=== PATIENT | male | born 1970 | race Caucasian/White ===

== ENCOUNTER 2018-01-01 11:00 | Observation (INO) | payer MEDICARE, OTHER ==
[~2018-01-01] VITALS: Ht 177.8 cm; Wt 114.0 kg
[2018-01-01] VITALS (8 sets, daily range): BP systolic 120–144; BP diastolic 68–99; PULSE 59–77; RESP 16–20; TEMP 96.4–98; O2SAT 94–98
[~2018-01-01 11:00] MED LIST: LEVO50TA4 PO; ULTR37.57 PO
[2018-01-01] MEDS ORDERED: OMEP20TA93 PO (11:09)
[2018-01-01] MEDS ORDERED: LEVO25TA4 PO (11:09)
[2018-01-01] MEDS ORDERED: SODIUM CHLORIDE 0.9% FLUSH 10 ML FLUSH IVF PRN (11:30)
--- NOTE | 2018-01-01 11:39 | RADRPT ---
EXAM DATE/TIME: 01/01/2018 11:32 [place] COMPARISON: CHEST SINGLE AP, May 26, 2016, 22:49. INDICATIONS : Chest pain. MEDICAL HISTORY : None. SURGICAL HISTORY : None. ENCOUNTER: Initial ACUITY: 3 days PAIN SCORE: 7/10 LOCATION: Bilateral chest FINDINGS: A single view of the chest demonstrates the lungs to be symmetrically aerated without evidence of mas s, infiltrate or effusion. The cardiomediastinal contours are unremarkable. Osseous structures are intact. CONCLUSION: No acute disease. Jayson Dao MD on January 01, 2018 at 11:36 Board Certified Radiologist. This report was verified electronically.
[2018-01-01 11:41] LABS: AUTOMATED NEUTROPHIL # 4.4 TH/MM3 (1.8-7.7); BASOPHIL % 0.5 % (0.0-2.0); EOSINOPHIL # 0.4 TH/MM3 (0-0.4); EOSINOPHIL % 5.9 % (0.0-4.0); HEMATOCRIT 45.8 % (39.0-51.0); HEMOGLOBIN 15.1 GM/DL (13.0-17.0); LYMPH % 26.5 % (9.0-44.0); LYMPHOCYTE # 1.8 TH/MM3 (1.0-4.8); MEAN CELL VOLUME 89.6 FL (80.0-100.0); MEAN CORPUSCULAR HEMOGLOBIN 29.6 PG (27.0-34.0); MEAN PLATELET VOLUME 7.7 FL (7.0-11.0); MONO % 5.9 % (0.0-8.0); MONOCYTE # 0.4 TH/MM3 (0-0.9); NEUT % 61.2 % (16.0-70.0); PLATELET COUNT 272 TH/MM3 (150-450); RED BLOOD COUNT 5.11 MIL/MM3 (4.50-5.90); RED CELL DISTRIBUTION WIDTH 12.4 % (11.6-17.2)
[2018-01-01 11:52] LABS: CHLORIDE 104 MEQ/L (98-107); SODIUM (NA) 138 MEQ/L (136-145)
--- NOTE | 2018-01-01 11:54 | PD ---
HPI Chief Complaint: Chest Pain Time Seen by Provider: 11:29 Travel History International Travel<30 days: No Contact w/Intl Traveler<30days: No Traveled to known affect area: No History of Present Illness HPI 47 year old male with history of heart burn controlled with Omeprazole presents to ED with worsening heart burn associated with non radiating central chest tightness and occasional SOB with onset this morning. The patient reports that he has had similar symptoms like this a year ago in which he came to the ED and was diagnosed with heart burn and placed on Omeprazole at that time, however he has had no relief of symptoms this episode with meds. He is denying N/V/D, fevers and abd pain. He is a non smoker, non drinker and denies any other drug use. Risk Factors: Obese Modifying Factors:[None] Associated sign and symptoms: Chest tightness, SOB, denies N/V/D. PFSH Past Medical History Diminished Hearing: No Thyroid Disease: Yes Past Surgical History Appendectomy: Yes Cholecystectomy: Yes Other Surgery: Yes (OPEN HEAD INJURY) Social History Alcohol Use: No Tobacco Use: No Substance Use: No Allergies-Medications (Allergen,Severity, Reaction): Coded Allergies: penicillin G (Unverified Allergy, Unknown, 01/01/18) Reported Meds & Prescriptions Reported Meds & Active Scripts Active Reported Omeprazole 20 Mg Tab 20 Mg PO DAILY Levothyroxine (Levothyroxine Sodium) 25 Mcg Tab 25 Mcg PO DAILY Review of Systems Except as stated in HPI: all other systems reviewed are Neg Physical Exam Narrative GENERAL: Well appearing obese male, mildly distressed. Awake and oriented 3. SKIN: Warm and dry. HEAD: Atraumatic. Normocephalic. EYES: Pupils equal and round. No scleral icterus. No injection or drainage. ENT: No nasal bleeding or discharge. Mucous membranes pink and moist. NECK: Trachea midline. No JVD. Supple. CARDIOVASCULAR: Regular rate and rhythm, no murmurs, rubs or gallops. Pulses are present and equal bilaterally. RESPIRATORY: No accessory muscle use. Clear to auscultation. Breath sounds equal bilaterally. GASTROINTESTINAL: Abdomen soft, non-tender, nondistended. Hepatic and splenic margins not palpable. MUSCULOSKELETAL: Extremities without clubbing, cyanosis, or edema. No obvious deformities. NEUROLOGICAL: Awake and alert. No obvious cranial nerve deficits. Motor grossly within normal limits. Five out of 5 muscle strength in the arms and legs. Normal speech. PSYCHIATRIC: Appropriate mood and affect; insight and judgment normal. Data Data Last Documented VS Vital Signs Date Time Temp Pulse Resp B/P (MAP) Pulse Ox O2 Delivery O2 Flow Rate FiO2 01/01/18 12:13 138/77 (97) 126/79 (95) 01/01/18 11:34 96 Room Air 01/01/18 11:09 75 01/01/18 11:03 98.0 18 Orders Orders Electrocardiogram (01/01/18 11:29) B-Type Natriuretic Peptide (01/01/18 11:29) Ckmb (Isoenzyme) Profile (01/01/18 11:29) Complete Blood Count With Diff (01/01/18 11:29) Comprehensive Metabolic Panel (01/01/18 11:29) D-Dimer (01/01/18 11:29) Magnesium (Mg) (01/01/18 11:29) Prothrombin Time / Inr (Pt) (01/01/18 11:29) Act Partial Throm Time (Ptt) (01/01/18 11:29) Troponin I (01/01/18 11:29) Chest, Single Ap (01/01/18 11:29) Ecg Monitoring (01/01/18 11:29) Bilateral Bp Monitoring (01/01/18 11:29) Iv Access Insert/Monitor (01/01/18 11:29) Oximetry (01/01/18 11:29) Oxygen Administration (01/01/18 11:29) Sodium Chloride 0.9% Flush (Ns Flush) (01/01/18 11:30) Lipase (01/01/18 11:29) CKMB (01/01/18 11:37) CKMB% (01/01/18 11:37) Aspirin (Aspirin) (01/01/18 12:15) Labs Laboratory Tests Test 01/01/18 11:37 White Blood Count 7.0 TH/MM3 Red Blood Count 5.11 MIL/MM3 Hemoglobin 15.1 GM/DL Hematocrit 45.8 % Mean Corpuscular Volume 89.6 FL Mean Corpuscular Hemoglobin 29.6 PG Mean Corpuscular Hemoglobin Concent 33.0 % Red Cell Distribution Width 12.4 % Platelet Count 272 TH/MM3 Mean Platelet Volume 7.7 FL Neutrophils (%) (Auto) 61.2 % Lymphocytes (%) (Auto) 26.5 % Monocytes (%) (Auto) 5.9 % Eosinophils (%) (Auto) 5.9 % Basophils (%) (Auto) 0.5 % Neutrophils # (Auto) 4.4 TH/MM3 Lymphocytes # (Auto) 1.8 TH/MM3 Monocytes # (Auto) 0.4 TH/MM3 Eosinophils # (Auto) 0.4 TH/MM3 Basophils # (Auto) 0.0 TH/MM3 CBC Comment DIFF FINAL Differential Comment Prothrombin Time 10.2 SEC Prothromb Time International Ratio 1.0 RATIO Activated Partial Thromboplast Time 25.6 SEC D-Dimer Quantitative (PE/DVT) 0.27 MG/L FEU Blood Urea Nitrogen 14 MG/DL Creatinine 0.99 MG/DL Random Glucose 125 MG/DL Total Protein 7.7 GM/DL Albumin 3.9 GM/DL Calcium Level 8.9 MG/DL Magnesium Level 2.2 MG/DL Alkaline Phosphatase 82 U/L Aspartate Amino Transf (AST/SGOT) 21 U/L Alanine Aminotransferase (ALT/SGPT) 36 U/L Total Bilirubin 0.5 MG/DL Sodium Level 138 MEQ/L Potassium Level 3.8 MEQ/L Chloride Level 104 MEQ/L Carbon Dioxide Level 27.7 MEQ/L Anion Gap 6 MEQ/L Estimat Glomerular Filtration Rate 81 ML/MIN Total Creatine Kinase 125 U/L Creatine Kinase MB 1.1 NG/ML Troponin I LESS THAN 0.02 NG/ML B-Type Natriuretic Peptide 5 PG/ML Lipase 193 U/L MDM Medical Decision Making Medical Screen Exam Complete: Yes Emergency Medical Condition: Yes Medical Record Reviewed: Yes Interpretation(s) EKG shows NSR, no ST elevation or depression, and no arrhythmias. No significant T-wave inversions. Laboratory Tests Test 01/01/18 11:37 Eosinophils (%) (Auto) 5.9 % (0.0-4.0) Random Glucose 125 MG/DL (74-106) Estimat Glomerular Filtration Rate 81 ML/MIN (>89) Troponin I LESS THAN 0.02 NG/ML Last 24 hours Impressions Chest X-Ray 01/01/18 1129 Signed Impressions: Service Date/Time: Monday, January 01, 2018 11:32 - CONCLUSION: No acute disease. Jayson Dao MD Differential Diagnosis ACS versus dysrhythmias versus anxiety attack versus PE versus pneumonia Narrative Course EKG did not show significant signs of dysrhythmias or ST changes. Chest x-ray was unremarkable for acute pulmonary processes. D-dimer is negative. At this point, my plan would be to admit the patient for further evaluation of this atypical chest pain. Case is discussed with Dr. Rosales for admission. Given aspirin in the ER. Diagnosis Primary Impression: Chest pain Admitting Information Admitting Physician Requests: it Joaquín Contreras MD Jan 01, 2018 11:53
[2018-01-01 11:55] LABS: CALCIUM 8.9 MG/DL (8.5-10.1)
[2018-01-01 11:56] LABS: ALBUMIN 3.9 GM/DL (3.4-5.0); BICARBONATE 27.7 MEQ/L (21.0-32.0); BLOOD UREA NITROGEN 14 MG/DL (7-18); GLUCOSE,RANDOM 125 MG/DL (74-106); MAGNESIUM 2.2 MG/DL (1.5-2.5)
[2018-01-01 11:58] LABS: ALT (GPT) 36 U/L (12-78); AST (GOT) 21 U/L (15-37)
[2018-01-01 11:59] LABS: CREATININE 0.99 MG/DL (0.60-1.30); GLOMERULAR FILTRATION RATE 81 ML/MIN (>89); PROTHROMBIN TIME - PATIENT 10.2 SEC (9.8-11.6)
[2018-01-01 12:00] LABS: TOTAL BILIRUBIN ADULT 0.5 MG/DL (0.2-1.0); TOTAL PROTEIN 7.7 GM/DL (6.4-8.2)
[2018-01-01 12:01] LABS: ALKALINE PHOSPHATASE 82 U/L (45-117)
[2018-01-01 12:03] LABS: D-DIMER 0.27 MG/L FEU (0.00-0.50)
[2018-01-01 12:04] LABS: TROPONIN I LESS THAN 0.02 NG/ML (0.02-0.05)
[2018-01-01] MEDS ORDERED: ASPIRIN 325 MG TAB PO ONE (12:15)
[2018-01-01] MEDS ORDERED: SODIUM CHLORIDE 0.9% FLUSH 10 ML FLUSH IV FLUSH PRN (13:15)
[2018-01-01] MEDS ORDERED: NALOXONE HCL 0.4 MG/ML AMP IV PUSH PRN (13:15)
[2018-01-01] MEDS ORDERED: ONDANSETRON HCL 4 MG/2 ML VIAL IVP PRN (13:15)
[2018-01-01] MEDS ORDERED: TEMAZEPAM 15 MG CAP PO PRN (13:15)
--- NOTE | 2018-01-01 13:25 | HHI.HP ---
[facility] Mumtaz Cerrato M.D. Admission Diagnosis chest pain Diagnoses: Chief Complaint: Chest pain Travel History International Travel<30 Days: No Contact w/Intl Traveler <30 Da: No Traveled to Known Affected Are: No History of Present Illness This patient is a 47-year-old gentleman with a history of hypothyroidism who comes in complaining of chest tightness 3 days. It is intermittent and severe today. He has received been told he has heartburn and has been taking omeprazole. He has never had any endoscopy and notes that he has increased anxiety lately. He does not smoke and has no family history premature cardiac disease. On exam chest pain is not reproducible however it is located substernally and epigastrically without radiation. It is associated with dizziness and palpitations however there is no diaphoresis or presyncopal episodes. He notes no hematemesis or constipation issues and has not had any gastrointestinal bleeding otherwise. Patient's been recommended for observation due to atypical chest pain. EKG and chest x-ray are unremarkable on my review. First set of cardiac enzymes are negative Review of Systems Constitutional: DENIES: Diaphoretic episodes, Fatigue, Fever, Weight gain, Weight loss, Chills, Dizziness, Change in appetite, Night Sweats Endocrine: DENIES: Heat/cold intolerance, Polydipsia, Polyuria, Polyphagia Eyes: DENIES: Blurred vision, Diplopia, Eye inflammation, Eye pain, Vision loss , Photosensitivity, Double Vision Ears, nose, mouth, throat: DENIES: Tinnitus, Hearing loss, Vertigo, Nasal discharge, Oral lesions, Throat pain, Hoarseness, Ear Pain, Running Nose, Epistaxis, Sinus Pain, Toothache, Odynophagia Respiratory: DENIES: Apneas, Cough, Snoring, Wheezing, Hemoptysis, Sputum production, Shortness of breath Cardiovascular: COMPLAINS OF: Chest pain Gastrointestinal: DENIES: Abdominal pain, Black stools, Bloody stools, Constipation, Diarrhea, Nausea, Vomiting, Difficulty Swallowing, Anorexia Genitourinary: DENIES: Sexual dysfunction, Urinary frequency, Urinary incontinence, Urgency, Hematuria, Dysuria, Nocturia, Penile Discharge, Testicular Pain, Testicular Swelling Musculoskeletal: DENIES: Joint pain, Muscle aches, Stiffness, Joint Swelling, Back pain, Neck pain Integumentary: DENIES: Abnormal pigmentation, Nail changes, Pruritus, Rash Hematologic/lymphatic: DENIES: Bruising, Lymphadenopathy Immunologic/allergic: DENIES: Eczema, Urticaria Neurologic: DENIES: Abnormal gait, Headache, Localized weakness, Paresthesias, Seizures, Speech Problems, Tremor, Poor Balance Psychiatric: DENIES: Anxiety, Confusion, Mood changes, Depression, Hallucinations, Agitation, Suicidal Ideation, Homicidal Ideation, Delusions Except as stated in HPI: all other systems reviewed are Neg Past Family Social History Past Medical History History of brain injury, anxiety, hypothyroidism Past Surgical History Appendectomy Brain surgery status post trauma, cholecystectomy Reported Medications Reviewed in the EMR Allergies: Coded Allergies: penicillin G (Unverified Allergy, Unknown, 01/01/18) Active Ordered Medications Reviewed in the EMR Family History No premature cardiac disease, father has diabetes and history of prostate and lung cancer Mother is alive and well Social History , retired [employer], no tobacco or alcohol dependency issues Physical Exam Vital Signs Vital Signs Date Time Temp Pulse Resp B/P (MAP) Pulse Ox O2 Delivery O2 Flow Rate FiO2 01/01/18 12:15 65 16 126/79 (95) 96 Room Air 01/01/18 12:13 138/77 (97) 126/79 (95) 01/01/18 11:34 96 Room Air 01/01/18 11:34 96 Room Air 01/01/18 11:09 75 95 Room Air 01/01/18 11:03 98.0 77 18 140/87 (104) 94 Physical Exam GENERAL: This is a well-nourished, well-developed patient, in no apparent distress. SKIN: No rashes, ecchymoses or lesions. Cool and dry. HEAD: Atraumatic. Normocephalic. No temporal or scalp tenderness. EYES: Pupils equal round and reactive. Extraocular motions intact. No scleral icterus. No injection or drainage. ENT: Nose without bleeding, purulent drainage or septal hematoma. Throat without erythema, tonsillar hypertrophy or exudate. Uvula midline. Airway patent. NECK: Trachea midline. No JVD or lymphadenopathy. Supple, nontender, no meningeal signs. CARDIOVASCULAR: Regular rate and rhythm without murmurs, gallops, or rubs. RESPIRATORY: Clear to auscultation. Breath sounds equal bilaterally. No wheezes , rales, or rhonchi. GASTROINTESTINAL: Abdomen soft, non-tender, nondistended. No hepato-splenomegaly , or palpable masses. No guarding. MUSCULOSKELETAL: Extremities without clubbing, cyanosis, or edema. No joint tenderness, effusion, or edema noted. No calf tenderness. Negative Homans sign bilaterally. NEUROLOGICAL: Awake and alert. Cranial nerves II through XII intact. Motor and sensory grossly within normal limits. Five out of 5 muscle strength in all muscle groups. Normal speech. Laboratory Laboratory Tests Test 01/01/18 11:37 White Blood Count 7.0 Red Blood Count 5.11 Hemoglobin 15.1 Hematocrit 45.8 Mean Corpuscular Volume 89.6 Mean Corpuscular Hemoglobin 29.6 Mean Corpuscular Hemoglobin Concent 33.0 Red Cell Distribution Width 12.4 Platelet Count 272 Mean Platelet Volume 7.7 Neutrophils (%) (Auto) 61.2 Lymphocytes (%) (Auto) 26.5 Monocytes (%) (Auto) 5.9 Eosinophils (%) (Auto) 5.9 Basophils (%) (Auto) 0.5 Neutrophils # (Auto) 4.4 Lymphocytes # (Auto) 1.8 Monocytes # (Auto) 0.4 Eosinophils # (Auto) 0.4 Basophils # (Auto) 0.0 CBC Comment DIFF FINAL Differential Comment Prothrombin Time 10.2 Prothromb Time International Ratio 1.0 Activated Partial Thromboplast Time 25.6 D-Dimer Quantitative (PE/DVT) 0.27 Blood Urea Nitrogen 14 Creatinine 0.99 Random Glucose 125 Total Protein 7.7 Albumin 3.9 Calcium Level 8.9 Magnesium Level 2.2 Alkaline Phosphatase 82 Aspartate Amino Transf (AST/SGOT) 21 Alanine Aminotransferase (ALT/SGPT) 36 Total Bilirubin 0.5 Sodium Level 138 Potassium Level 3.8 Chloride Level 104 Carbon Dioxide Level 27.7 Anion Gap 6 Estimat Glomerular Filtration Rate 81 Total Creatine Kinase 125 Creatine Kinase MB 1.1 Troponin I LESS THAN 0.02 B-Type Natriuretic Peptide 5 Lipase 193 Result Diagram: 01/01/18 1137 01/01/18 1137 Imaging Last Impressions Chest X-Ray 01/01/18 1129 Signed Impressions: Service Date/Time: Wednesday, January 01, 2018 11:32 - CONCLUSION: No acute disease. MD Subhash Candelario VTE Risk Assessment Caprini VTE Risk Assessment: No/Low Risk (score <= 1) Caprini Risk Assessment Model Point Value = 1 Point Value = 2 Point Value = 3 Point Value = 5 Age 41-60 Minor surgery BMI > 25 kg/m2 Swollen legs Varicose veins or History of unexplained or recurrent spontaneous Oral contraceptives or hormone replacement Sepsis (< 1 month) Serious lung disease, including pneumonia (< 1 month) Abnormal pulmonary function Acute myocardial infarction Congestive heart failure (< 1 month) History of inflammatory bowel disease Medical patient at bed rest Age 61-74 Arthroscopic surgery Major open surgery (> 45 min) Laparoscopic surgery (> 45 min) Malignancy Confined to bed (> 72 hours) Immobilizing plaster cast Central venous access Age >= 75 History of VTE Family history of VTE Factor V Leiden Prothrombin [id number] Lupus anticoagulant Anticardiolipin antibodies Elevated serum homocysteine Heparin-induced thrombocytopenia Other congenital or acquired thrombophilia Stroke (< 1 month) Elective arthroplasty Hip, pelvis, or leg fracture Acute spinal cord injury (< 1 month) Prophylaxis Regimen Total Risk Factor Score Risk Level Prophylaxis Regimen 0-1 Low Early ambulation 2 Moderate Order ONE of the following: *Sequential Compression Device (SCD) *Heparin 5000 units SQ BID 3-4 Higher Order ONE of the following medications: *Heparin 5000 units SQ TID *Enoxaparin/Lovenox 40 mg SQ daily (WT < 150 kg, CrCl > 30 mL/min) *Enoxaparin/Lovenox 30 mg SQ daily (WT < 150 kg, CrCl > 10-29 mL/min) *Enoxaparin/Lovenox 30 mg SQ BID (WT < 150 kg, CrCl > 30 mL/min) AND/OR *Sequential Compression Device (SCD) 5 or more Highest Order ONE of the following medications: *Heparin 5000 units SQ TID (Preferred with Epidurals) *Enoxaparin/Lovenox 40 mg SQ daily (WT < 150 kg, CrCl > 30 mL/min) *Enoxaparin/Lovenox 30 mg SQ daily (WT < 150 kg, CrCl > 10-29 mL/min) *Enoxaparin/Lovenox 30 mg SQ BID (WT < 150 kg, CrCl > 30 mL/min) AND *Sequential Compression Device (SCD) Assessment and Plan Problem List: (1) Chest pain ICD Code: R07.9 - Chest pain, unspecified Status: Acute Plan: Atypical pain likely GI related. Patient has minimal risk factors for coronary disease however the pictures unclear. We will obtain a nuclear stress test and evaluate further for gastrointestinal related chest pain. We'll continue with proton pump inhibitor twice daily Continue on telemetry, cardiac enzymes and EKG to be followed EKG is negative on my review for acute ischemic changes and chest x-ray on my review is not consistent with acute cardiopulmonary disease (2) Hypothyroidism ICD Code: E03.9 - Hypothyroidism, unspecified Status: Acute Plan: Continue Synthroid Discussed Condition With Patient, SILVIA Rinaldi, spouse Susana Rosales MD Jan 01, 2018 13:25
--- NOTE | 2018-01-01 14:01 | EKG ---
Date Performed: 01/01/2018 Time Performed: 11:02:41 PTAGE: 47 years EKG: Sinus rhythm MINIMAL VOLTAGE CRITERIA FOR LVH, CONSIDER NORMAL VARIANT BORDERLINE ECG No significant change from prior electrocardiogram. PREVIOUS TRACING : 05/26/2016 22.38 DOCTOR: Hilario Sterling Interpretating Date/Time 01/01/2018 13:59:39
[2018-01-01] MEDS: PANTOPRAZOLE SOD 40 MG DELAYED RELEASE TAB PO SCH ×2 (14:03→20:51)
[2018-01-01] MEDS: SODIUM CHLOR 0.9% 1000 ML INJ 1,000 ML IV SCH ×2 (14:03→22:32)
[2018-01-01 14:09] LABS: TROPONIN I LESS THAN 0.02 NG/ML (0.02-0.05)
--- NOTE | 2018-01-01 17:10 | PD.CONS ---
HPI History of Present Illness This is a 47 year old M with medical history significant for hypothyroidism who presented to the emergency department today with complaints of chest tightness that has been intermittent for the past three days. He states this morning he had an episode so bad that he was not able to catch his breath. Also this morning had a headache, dizziness, and palpitations. Cardiac work up so far negative, including cardiac enzymes, EKG, and chest x-ray. Pt reports known history of acid reflux that he receives Omeprazole prescription for and he has been on it a long time. Denies taking any other medication OTC for relief. Has never had an EGD. Denies ETOH, smoking, NSAIDs. Denies black, tarry stools , abdominal pain, nausea, vomiting. (Deann Martinez) PFSH Past Medical History History of brain injury, anxiety, hypothyroidism Past Surgical History Appendectomy Brain surgery status post trauma, cholecystectomy (Deann Martinez) Coded Allergies: penicillin G (Unverified Allergy, Unknown, 01/01/18) Family History No premature cardiac disease, father has diabetes and history of prostate and lung cancer Mother is alive and well Social History , retired [employer], no tobacco or alcohol dependency issues (Deann Martinez) Review of Systems Gastrointestinal: COMPLAINS OF: Heartburn, DENIES: Abdominal pain, Black stools , Bloody stools, Constipation, Diarrhea, Nausea, Vomiting, Difficulty Swallowing , Odynophagia, Swelling of Abdomen, Hematemesis (Deann Martinez) GI Exam Vitals I&O Vital Signs Date Time Temp Pulse Resp B/P (MAP) Pulse Ox O2 Delivery O2 Flow Rate FiO2 01/01/18 14:29 01/01/18 14:04 66 18 132/68 (89) 97 Room Air 01/01/18 13:05 64 16 139/79 (99) 96 Room Air 01/01/18 12:15 65 16 126/79 (95) 96 Room Air 01/01/18 12:13 138/77 (97) 126/79 (95) 01/01/18 11:34 96 Room Air 01/01/18 11:34 96 Room Air 01/01/18 11:09 75 95 Room Air 01/01/18 11:03 98.0 77 18 140/87 (104) 94 I/O 12/31/17 12/31/17 12/31/17 01/01/18 01/01/18 01/01/18 07:00 15:00 23:00 07:00 15:00 23:00 Intake Total 100 ml Balance 100 ml Intake IV Total 100 ml Imaging Last Impressions Chest X-Ray 01/01/18 1129 Signed Impressions: Service Date/Time: Monday, January 01, 2018 11:32 - CONCLUSION: No acute disease. Jayson Dao MD Laboratory Test 01/01/18 11:37 01/01/18 13:35 White Blood Count 7.0 TH/MM3 Red Blood Count 5.11 MIL/MM3 Hemoglobin 15.1 GM/DL Hematocrit 45.8 % Mean Corpuscular Volume 89.6 FL Mean Corpuscular Hemoglobin 29.6 PG Mean Corpuscular Hemoglobin Concent 33.0 % Red Cell Distribution Width 12.4 % Platelet Count 272 TH/MM3 Mean Platelet Volume 7.7 FL Neutrophils (%) (Auto) 61.2 % Lymphocytes (%) (Auto) 26.5 % Monocytes (%) (Auto) 5.9 % Eosinophils (%) (Auto) 5.9 % Basophils (%) (Auto) 0.5 % Neutrophils # (Auto) 4.4 TH/MM3 Lymphocytes # (Auto) 1.8 TH/MM3 Monocytes # (Auto) 0.4 TH/MM3 Eosinophils # (Auto) 0.4 TH/MM3 Basophils # (Auto) 0.0 TH/MM3 CBC Comment DIFF FINAL Differential Comment Prothrombin Time 10.2 SEC Prothromb Time International Ratio 1.0 RATIO Activated Partial Thromboplast Time 25.6 SEC D-Dimer Quantitative (PE/DVT) 0.27 MG/L FEU Blood Urea Nitrogen 14 MG/DL Creatinine 0.99 MG/DL Random Glucose 125 MG/DL Total Protein 7.7 GM/DL Albumin 3.9 GM/DL Calcium Level 8.9 MG/DL Magnesium Level 2.2 MG/DL Alkaline Phosphatase 82 U/L Aspartate Amino Transf (AST/SGOT) 21 U/L Alanine Aminotransferase (ALT/SGPT) 36 U/L Total Bilirubin 0.5 MG/DL Sodium Level 138 MEQ/L Potassium Level 3.8 MEQ/L Chloride Level 104 MEQ/L Carbon Dioxide Level 27.7 MEQ/L Anion Gap 6 MEQ/L Estimat Glomerular Filtration Rate 81 ML/MIN Total Creatine Kinase 125 U/L 114 U/L Creatine Kinase MB 1.1 NG/ML Troponin I LESS THAN 0.02 NG/ML LESS THAN 0.02 NG/ML B-Type Natriuretic Peptide 5 PG/ML Lipase 193 U/L Physical Examination HEENT: Normocephalic; atraumatic CHEST: Even/unlabored CARDIAC: RRR ABDOMEN: Soft, nondistended, nontender; bowel sounds active EXTREMITIES: No clubbing, cyanosis, or edema. SKIN: Normal; no rash; no jaundice. COLD ROLL INSPECTOR: No focal deficits; alert and oriented times three. (Deann Martinez) Assessment and Plan Plan Assessment: - Chest tightness x 3 days, intermittent. Episode this morning so severe he felt like he couldn't take a deep breath. Cardiology workup so far negative including EKG, cardiac enzymes, and chest x-ray. Denies cardiac history. Reports known history of acid reflux, takes Omeprazole as prescribed, has been on it a long time. Has not been taking any other OTC medication for relief. Denies nausea, vomiting, abdominal pain, black, tarry stools. Denies taking NSAIDs, smoking, ETOH. Has never had EGD. H/H stable 15.1/45.8 no evidence of GIB. Plan: EGD tomorrow Obtain consent NPO after MN Continue Protonix Further recommendations to follow based on results of above Pt has been seen and examined by myself and Dr. Padilla and this note is written on his behalf (Deann Martinez) Physician Comments Patient seen and examined Agree with above Continue with current supportive care Monitor labs Plan for an EGD in the morning (Douglas Padilla MD) Deann Martinez Jan 01, 2018 17:10 Douglas Padilla MD Jan 01, 2018 20:37
--- NOTE | 2018-01-01 17:23 | EKG ---
Date Performed: 01/01/2018 Time Performed: 13:35:12 PTAGE: 47 years EKG: Sinus rhythm NORMAL ECG Compared to prior electrocardiogram, No significant change from prior electrocardiogram. PREVIOUS TRACING : 01/01/2018 11.02 DOCTOR: Hialrio Sterling Interpretating Date/Time 01/01/2018 17:22:32
[2018-01-01 18:46] LABS: TROPONIN I LESS THAN 0.02 NG/ML (0.02-0.05)
[2018-01-01] MEDS: SODIUM CHLORIDE 0.9% FLUSH 10 ML FLUSH IV FLUSH SCH (20:50)
[2018-01-02] VITALS: BP 114/66; PULSE 80; RESP 20; O2SAT 95
[2018-01-02 04:00] VITALS: BP 102/57; PULSE 63; RESP 18; O2SAT 94
--- NOTE | 2018-01-02 05:20 | EKG ---
Date Performed: 01/01/2018 Time Performed: 21:22:19 PTAGE: 47 years EKG: Sinus rhythm NORMAL ECG No significant change from prior electrocardiogram. PREVIOUS TRACING : 01/01/2018 13.35 DOCTOR: Hilario Sterling Interpretating Date/Time 01/02/2018 05:19:35
[2018-01-02] MEDS ORDERED: LEVOTHYROXINE SODIUM 25 MCG TAB PO SCH (06:00)
[2018-01-02 06:24] LABS: AUTOMATED NEUTROPHIL # 5.2 TH/MM3 (1.8-7.7); BASOPHIL % 0.6 % (0.0-2.0); EOSINOPHIL # 0.5 TH/MM3 (0-0.4); EOSINOPHIL % 5.8 % (0.0-4.0); HEMATOCRIT 42.2 % (39.0-51.0); HEMOGLOBIN 13.9 GM/DL (13.0-17.0); LYMPH % 23.5 % (9.0-44.0); LYMPHOCYTE # 1.9 TH/MM3 (1.0-4.8); MEAN CELL VOLUME 90.1 FL (80.0-100.0); MEAN CORPUSCULAR HEMOGLOBIN 29.7 PG (27.0-34.0); MEAN PLATELET VOLUME 7.8 FL (7.0-11.0); MONOCYTE # 0.5 TH/MM3 (0-0.9); NEUT % 64.1 % (16.0-70.0); PLATELET COUNT 223 TH/MM3 (150-450); RED BLOOD COUNT 4.69 MIL/MM3 (4.50-5.90); RED CELL DISTRIBUTION WIDTH 12.8 % (11.6-17.2); WHITE BLOOD COUNT 8.1 TH/MM3 (4.0-11.0)
[2018-01-02] MEDS: ACETAMINOPHEN 325 MG TAB PO PRN ×2 (06:32→14:16)
[2018-01-02 06:45] LABS: CALCIUM 8.2 MG/DL (8.5-10.1)
[2018-01-02 06:46] LABS: BICARBONATE 28.3 MEQ/L (21.0-32.0)
[2018-01-02 06:49] LABS: CREATININE 0.93 MG/DL (0.60-1.30)
[2018-01-02 06:50] VITALS: BP 102/57; PULSE 63; RESP 15; TEMP 98; O2SAT 98
[2018-01-02] MEDS ORDERED: LACTATED RINGER'S 1000 ML IV PRN (07:00)
[2018-01-02] MEDS ORDERED: METOPROLOL TARTRATE 25 MG TAB PO PRN (07:00)
[2018-01-02] MEDS ORDERED: SODIUM CHLORID 0.9% 500 ML IV PRN (07:00)
[2018-01-02] MEDS ORDERED: CHLORHEXIDINE GLUCONATE 2 % 1 PACK (2 CLOTHS) TOPICAL PRN (07:00)
[2018-01-02] MEDS ORDERED: POVIDONE IODINE 5% (ANTISEPSIS KIT) 4 APPLICATIONS EACH NARE PRN (07:00)
--- NOTE | 2018-01-02 07:20 | PD.PROCEDR ---
GI Procedure PROCEDURE PERFORMED EGD with biopsy INDICATION FOR PROCEDURE Chest pain rule out GI etiology PROCEDURE: The procedure, risks and benefits were discussed with Mr. Hernandez and informed consent was obtained. Anesthesia sedated him with Diprivan. He was placed in the left lateral decubitus position. EGD: The Pentax videoscope was introduced through the oropharynx and advanced to the second portion of the duodenum under direct visualization. Retroflexion was performed in the stomach. FINDINGS: The esophagus this was unremarkable and within normal limits this all esophageal biopsies were taken The stomach there was some streaky and patchy erythema in the antrum but no ulcerations no erosions no blood or bleeding the rest of the stomach was unremarkable antral biopsies were taken for further evaluation The duodenum this was normal ESTIMATED BLOOD LOSS: None SPECIMENS REMOVED: Esophageal and gastric biopsies COMPLICATIONS: None IMPRESSION: Mild gastritis PLAN: Await biopsies Continue PPI Continue with current supportive care Advanced diet No clear etiology for chest pain from a GI perspective Douglas Padilla MD Jan 02, 2018 07:20
[2018-01-02 08:00] VITALS: BP 110/73; PULSE 67; RESP 20; TEMP 97.8; O2SAT 96
[2018-01-02] MEDS: SODIUM CHLOR 0.9% 1000 ML INJ 1,000 ML IV SCH (08:24)
[2018-01-02] MEDS: PANTOPRAZOLE SOD 40 MG DELAYED RELEASE TAB PO SCH (08:24)
[2018-01-02] MEDS: SODIUM CHLORIDE 0.9% FLUSH 10 ML FLUSH IV FLUSH SCH (08:24)
[2018-01-02] MEDS ORDERED: PANT40TA3 PO (11:28)
--- NOTE | 2018-01-02 11:29 | HHI.DCPOC ---
Discharge Care Plan Diagnosis: (1) Gastritis (2) Chest pain Goals to Promote Your Health * To prevent worsening of your condition and complications * To maintain your health at the optimal level Directions to Meet Your Goals Take your medications as prescribed Follow your dietary instruction Follow activity as directed Keep your appointments as scheduled Take your immunizations and boosters as scheduled If your symptoms worsen call your PCP, if no PCP go to Urgent Care Center or Emergency Room Smoking is Dangerous to Your Health. Avoid second hand smoke Call the 24-hour hour crisis hotline for domestic abuse at Susana Rosales MD Jan 02, 2018 11:29
[2018-01-02 12:00] VITALS: BP_SYST 133; PULSE 88; RESP 18; TEMP 98.7; O2SAT 97
[2018-01-02] MEDS ORDERED: PROPOFOL 200 MG/20 ML AMP IV ONE (12:00)
[2018-01-02] MEDS ORDERED: LIDOCAINE HCL 1% PF 5 ML SYRINGE OTHER ONE (12:00)
[2018-01-02] MEDS ORDERED: REGADENOSON INJ 0.4 MG/5 ML SYR IV ONE (13:29)
--- NOTE | 2018-01-02 14:49 | RADRPT ---
EXAM DATE/TIME: 01/02/2018 13:14 [facility] COMPARISON: No previous studies available for comparison. INDICATIONS : Chest pain for 3 days. Angina. DOSE: 35 mCi Tc99m Myoview at stress. 11 mCi Tc99m Myoview at rest. 0.4 mg Lexiscan STRESS SYMPTOMS: Headache. EJECTION FRACTION: 55% MEDICAL HISTORY : Hypothyroidism. SURGICAL HISTORY : Cholecystectomy. Head surgery. ENCOUNTER: Initial ACUITY: 3 days PAIN SCALE: 3/10 LOCATION: Bilateral chest TECHNIQUE: The patient underwent pharmacologic stress with infusion of prescribed dose. Continuous ECG tracing was monitored during stress. Gated SPECT imaging was performed after stress and conventional SPECT i maging was performed at rest. The examination was performed on a SPECT/CT scanner, both attenuation and non-corrected datasets were reviewed. FINDINGS: DISTRIBUTION: The maximum perfused segment at stress is in the lateral wall. PERFUSION STUDY: The pattern of perfusion at stress is within normal limits. There is a summed stress score of one. GATED STUDY: There is intact wall motion and thickening without hypokinetic or dyskinetic segments. CONCLUSION: 1. Normal wall motion and calculated ejection fraction of 55%. 2. No fixed or reversible wall defects to suggest ischemia or infarction. RISK CATEGORY: Low (<1% Annual Mortality Rate) Jayson Dao MD on January 02, 2018 at 14:45 Board Certified Radiologist. This report was verified electronically.
--- NOTE | 2018-01-02 14:59 | HHI.DS ---
Discharge Summary Admission Date Jan 01, 2018 at 12:47 Discharge Date: Jan 02, 2018 Admitting Diagnosis chest pain (1) Chest pain ICD Code: R07.9 - Chest pain, unspecified Status: Acute (2) Hypothyroidism ICD Code: E03.9 - Hypothyroidism, unspecified Status: Acute Procedures EGD, gastritis Brief History - From Admission This patient is a 47-year-old gentleman with a history of hypothyroidism who comes in complaining of chest tightness 3 days. It is intermittent and severe today. He has received been told he has heartburn and has been taking omeprazole. He has never had any endoscopy and notes that he has increased anxiety lately. He does not smoke and has no family history premature cardiac disease. On exam chest pain is not reproducible however it is located substernally and epigastrically without radiation. It is associated with dizziness and palpitations however there is no diaphoresis or presyncopal episodes. He notes no hematemesis or constipation issues and has not had any gastrointestinal bleeding otherwise. Patient's been recommended for observation due to atypical chest pain. EKG and chest x-ray are unremarkable on my review. First set of cardiac enzymes are negative CBC/BMP: 01/02/18 0540 01/02/18 0540 Significant Findings Laboratory Tests Test 01/01/18 11:37 01/01/18 13:35 01/01/18 17:50 01/02/18 05:40 Eosinophils (%) (Auto) 5.9 % (0.0-4.0) 5.8 % (0.0-4.0) Random Glucose 125 MG/DL (74-106) Estimat Glomerular Filtration Rate 81 ML/MIN (>89) 87 ML/MIN (>89) Troponin I LESS THAN 0.02 NG/ML LESS THAN 0.02 NG/ML LESS THAN 0.02 NG/ML Eosinophils # (Auto) 0.5 TH/MM3 (0-0.4) Calcium Level 8.2 MG/DL (8.5-10.1) Anion Gap 4 MEQ/L (5-15) Imaging Last Impressions Myocardial Perfusion Scan Nuc Med 01/02/18 0000 Signed Impressions: Service Date/Time: January 13:14 - CONCLUSION: 1. Normal wall motion and calculated ejection fraction of 55%%. 2. No fixed or reversible wall defects to suggest ischemia or infarction. RISK CATEGORY: Low (<1%% Annual Mortality Rate) Jayson Dao MD Chest X-Ray 01/01/18 1129 Signed Impressions: Service Date/Time: Monday, January 01, 2018 11:32 - CONCLUSION: No acute disease. Jayson Dao MD PE at Discharge GENERAL: This is a well-nourished, well-developed patient, in no apparent distress. CARDIOVASCULAR: Regular rate and rhythm without murmurs, gallops, or rubs. RESPIRATORY: Clear to auscultation. Breath sounds equal bilaterally. No wheezes , rales, or rhonchi. GASTROINTESTINAL: Abdomen soft, non-tender, nondistended. Normal active bowel sounds MUSCULOSKELETAL: Extremities without clubbing, cyanosis, or edema. NEURO: Alert & Oriented x4 to person, place, time, situation. Moves all ext x4 Pt update on day of discharge Patient doing well. Discharge plans discussed with patient, likely scan unremarkable and EKG did show some gastritis Hospital Course this patient is a 47-year-old gentleman with came in with atypical chest pain likely gastrointestinal related He did have a Teagan scan which was normal and an upper endoscopy which did show some gastritis. Patient was recommended for proton pump inhibitor and outpatient follow-up Pt Condition on Discharge: Good Discharge Disposition: Discharge Home Discharge Time: <= 30 minutes Discharge Instructions DIET: Follow Instructions for: As Tolerated, No Restrictions Activities you can perform: Regular-No Restrictions Follow up Referrals: PCP Follow-up - 1 Week New Medications: Pantoprazole (Pantoprazole) 40 Mg Tab 40 MG PO Q12HR for gastritis, #42 TAB take twice daily for two weeks and then once daily Continued Medications: Levothyroxine (Levothyroxine) 25 Mcg Tab 25 MCG PO DAILY for Thyroid, #30 TAB 0 Refills Discontinued Medications: Omeprazole (Omeprazole) 20 Mg Tab 20 MG PO DAILY, #30 TAB 0 Refills Susana Rosales MD Jan 02, 2018 14:59
[2018-01-02 15:16] VITALS: RESP 18
--- NOTE | 2018-01-03 11:28 | TR ---
Date Performed: 01/02/2018 Time Performed: 13:44:24 DOCTOR: Noah Hylton DRUG LIST: CLINICAL HISTORY: REASON FOR TEST: REASON FOR ENDING: OBSERVATION: CONCLUSION: Lexiscan stress test was performed under standard four minute protocol. Radionuclid e was injected one minute prior to ending the test. No electrocardiographic abormalities were present to suggest ischemia. Nuclear imaging and interpretation are pending. COMMENTS:
== END 2018-01-02 15:50 | disposition home or self-care (01) ==
LOC: PHED 11:00 → PHEDA 12:47 → PH3A 14:28
PROVIDERS: ADMIT Hospitalist; ATTEND Hospitalist
DX: K29.50 Unspecified chronic gastritis without bleeding (principal); R07.89 Other chest pain; R12 Heartburn; R06.02 Shortness of breath; E03.9 Hypothyroidism, unspecified; R42 Dizziness and giddiness; R00.2 Palpitations; R51 Headache; E83.51 Hypocalcemia; Z79.899 Other long term (current) drug therapy
CPT/HCPCS: 00731; 43239; 71045; 78452; 80048; 80053; 82550; 82552; 83690; 83735; 83880; 84484; 85025; 85379; 85610; 85730; 88305; 88312; 93005; 93017; 96360; 96361; 99285; A9502; G0378; J2785; J7030

== ENCOUNTER 2018-04-17 02:48 | Emergency (ER) | payer OTHER, MEDICARE ==
[~2018-04-17] VITALS: Ht 177.8 cm; Wt 110.5 kg
[~2018-04-17 02:48] MED LIST changes: +LEVO25TA4 PO; -LEVO50TA4 PO; +PANT40TA3 PO; -ULTR37.57 PO
[2018-04-17 03:00] VITALS: BP_SYST 141; BP_SYST 147; BP_DIAS 85; BP_DIAS 88; BP_DIAS 91; PULSE 68; RESP 18; O2SAT 95; O2SAT 98
[2018-04-17 03:06] VITALS: O2SAT 95
[2018-04-17] MEDS ORDERED: ONDANSETRON HCL 4 MG/2 ML VIAL IV PUSH ONE (03:15)
[2018-04-17] MEDS ORDERED: PANTOPRAZOLE SODIUM 40 MG VIAL IV PUSH ONE (03:15)
[2018-04-17] MEDS ORDERED: SODIUM CHLORIDE 0.9% FLUSH 10 ML FLUSH IVF PRN (03:15)
[2018-04-17] MEDS ORDERED: ASPIRIN 81 MG CHEW TAB PO ONE (03:15)
[2018-04-17] MEDS ORDERED: SODIUM CHLOR 0.9% 1000 ML INJ 1,000 ML IV SCH (03:15)
--- NOTE | 2018-04-17 03:21 | PD ---
HPI Chief Complaint: Chest Pain Time Seen by Provider: 03:01 Travel History International Travel<30 days: No Contact w/Intl Traveler<30days: No Traveled to known affect area: No History of Present Illness HPI 47-year-old male presents to the emergency department by private transportation for complaint of severe stabbing chest pain since 9 PM Saturday evening. Patient states after eating red sauce he started noticing pain in his chest. Patient did take his prescription antacids without relief. Patient did have mild diaphoresis and shortness of breath but no nausea or vomiting. No referred neck jaw shoulder arm pain. Patient did report some mild referred high back pain. Patient also notes some epigastric and right upper quadrant discomfort. Patient is undergone upper endoscopy and colonoscopy in the past and as recently as December 2017 underwent stress test which did not show any acute abnormality and was low risk for CAD. Patient denies personal history of hypertension dyslipidemia diabetes tobaccoism or premature onset family history of CAD/DE. The patient rates his discomfort 7/10 in intensity. PFSH Past Medical History Narrative Medical GERD hypothyroidism appendectomy colonoscopy upper endoscopy stress test; no tobacco use; nursing notes reviewed Diminished Hearing: No Thyroid Disease: Yes Tetanus Vaccination: Unknown Influenza Vaccination: Yes ?: Not Past Surgical History Appendectomy: Yes Cholecystectomy: Yes Other Surgery: Yes (OPEN HEAD INJURY) Social History Alcohol Use: No Tobacco Use: No Substance Use: No Allergies-Medications (Allergen,Severity, Reaction): Coded Allergies: penicillin G (Verified Allergy, Unknown, 04/17/18) Reported Meds & Prescriptions Reported Meds & Active Scripts Active Zofran Odt (Ondansetron Odt) 4 Mg Tab 4 Mg SL Q6HR PRN Carafate Liq (Sucralfate) 1 Gm/10 Ml Susp 1 Gm PO Q6HR 14 Days on empty stomach Pantoprazole (Pantoprazole Sodium) 40 Mg Tab 40 Mg PO Q12HR take twice daily for two weeks and then once daily Reported Levothyroxine (Levothyroxine Sodium) 25 Mcg Tab 25 Mcg PO DAILY Review of Systems Except as stated in HPI: all other systems reviewed are Neg General / Constitutional: No: Fever, Chills HENT: No: Congestion Cardiovascular: Positive: Chest Pain or Discomfort, No: Syncope Respiratory: No: Shortness of Breath Gastrointestinal: Positive: Nausea, Abdominal Pain Genitourinary: No: Flank Pain Musculoskeletal: No: Pain Skin: No Rash Neurologic: No: Weakness Psychiatric: No: Anxiety Hematologic/Lymphatic: No: Lymph Node Enlargement Physical Exam Narrative GENERAL: Well-developed well-nourished male no acute distress or respiratory distress SKIN: Warm and dry. HEAD: Normocephalic. EYES: No scleral icterus. No injection or drainage. NECK: Supple, trachea midline. No JVD or lymphadenopathy. CARDIOVASCULAR: Regular rate and rhythm without murmurs, gallops, or rubs. RESPIRATORY: Breath sounds equal bilaterally. No accessory muscle use. GASTROINTESTINAL: Abdomen soft, mild reproducible epigastric and right upper quadrant tenderness without guarding or rebound, nondistended. MUSCULOSKELETAL: No cyanosis, or edema. BACK: Nontender without obvious deformity. No CVA tenderness. Data Data Last Documented VS Vital Signs Date Time Temp Pulse Resp B/P (MAP) Pulse Ox O2 Delivery O2 Flow Rate FiO2 04/17/18 04:25 58 18 126/75 (92) 96 Room Air Orders Orders Electrocardiogram (04/17/18 03:01) Ckmb (Isoenzyme) Profile (04/17/18 03:01) Complete Blood Count With Diff (04/17/18 03:01) Comprehensive Metabolic Panel (04/17/18 03:01) Magnesium (Mg) (04/17/18 03:01) Prothrombin Time / Inr (Pt) (04/17/18 03:01) Act Partial Throm Time (Ptt) (04/17/18 03:01) Troponin I (04/17/18 03:01) Lipase (04/17/18 03:01) Ecg Monitoring (04/17/18 03:01) Bilateral Bp Monitoring (04/17/18 03:01) Iv Access Insert/Monitor (04/17/18 03:01) Oximetry (04/17/18 03:01) Oxygen Administration (04/17/18 03:01) Aspirin Chew (Aspirin Chew) (04/17/18 03:15) Sodium Chloride 0.9% Flush (Ns Flush) (04/17/18 03:15) Chest, Pa & Lat (04/17/18 03:01) Ondansetron Inj (Zofran Inj) (04/17/18 03:15) Pantoprazole Inj (Protonix Inj) (04/17/18 03:15) Sodium Chlor 0.9% 1000 Ml Inj (Ns 1000 M (04/17/18 03:15) CKMB (04/17/18 03:27) CKMB% (04/17/18 03:27) Sucralfate (Carafate) (04/17/18 04:15) D-Dimer (04/17/18 03:27) Ct Thorax/ Chest Wo Iv Contras (04/17/18 ) Labs Laboratory Tests Test 04/17/18 03:27 White Blood Count 10.9 TH/MM3 Red Blood Count 4.78 MIL/MM3 Hemoglobin 14.5 GM/DL Hematocrit 42.6 % Mean Corpuscular Volume 89.0 FL Mean Corpuscular Hemoglobin 30.4 PG Mean Corpuscular Hemoglobin Concent 34.1 % Red Cell Distribution Width 12.4 % Platelet Count 315 TH/MM3 Mean Platelet Volume 9.1 FL Neutrophils (%) (Auto) 73.1 % Lymphocytes (%) (Auto) 16.8 % Monocytes (%) (Auto) 7.0 % Eosinophils (%) (Auto) 2.3 % Basophils (%) (Auto) 0.8 % Neutrophils # (Auto) 7.9 TH/MM3 Lymphocytes # (Auto) 1.8 TH/MM3 Monocytes # (Auto) 0.8 TH/MM3 Eosinophils # (Auto) 0.3 TH/MM3 Basophils # (Auto) 0.1 TH/MM3 CBC Comment DIFF FINAL Differential Comment Prothrombin Time 9.9 SEC Prothromb Time International Ratio 1.0 RATIO Activated Partial Thromboplast Time 20.4 SEC D-Dimer Quantitative (PE/DVT) 0.35 MG/L FEU Blood Urea Nitrogen 11 MG/DL Creatinine 0.99 MG/DL Random Glucose 118 MG/DL Total Protein 7.3 GM/DL Albumin 3.6 GM/DL Calcium Level 8.6 MG/DL Magnesium Level 2.0 MG/DL Alkaline Phosphatase 96 U/L Aspartate Amino Transf (AST/SGOT) 17 U/L Alanine Aminotransferase (ALT/SGPT) 24 U/L Total Bilirubin 0.2 MG/DL Sodium Level 139 MEQ/L Potassium Level 4.2 MEQ/L Chloride Level 108 MEQ/L Carbon Dioxide Level 24.5 MEQ/L Anion Gap 7 MEQ/L Estimat Glomerular Filtration Rate 81 ML/MIN Total Creatine Kinase 114 U/L Creatine Kinase MB 0.7 NG/ML Troponin I LESS THAN 0.02 NG/ML Lipase 166 U/L MDM Medical Decision Making Medical Screen Exam Complete: Yes Emergency Medical Condition: Yes Medical Record Reviewed: Yes (low risk stress test 01/01/18) Interpretation(s) EKG: Sinus bradycardia rate [address] elevation or injury pattern change noted, borderline LVH minimal voltage criteria; no change from 01/01/18 except rate Last Impressions Chest X-Ray 04/17/18 0301 Signed Impressions: Service Date/Time: April 03:38 - CONCLUSION: 1. Questionable rounded area of density involving the lung bases on the lateral view without correlate on the frontal view. Differential diagnostic considerations include overlapping density, lower lobe rounded atelectasis, and mass. Consider CT thorax as followup. 2. Otherwise, no acute cardio pulmonary disease. Everett Garcia Jr., MD CBC & BMP Diagram 04/17/18 03:27 Total Protein 7.3, Albumin 3.6, Calcium Level 8.6, Magnesium Level 2.0, Alkaline Phosphatase 96, Aspartate Amino Transf (AST/SGOT) 17, Alanine Aminotransferase (ALT/SGPT) 24, Total Bilirubin 0.2 Vital Signs Date Time Temp Pulse Resp B/P (MAP) Pulse Ox O2 Delivery O2 Flow Rate FiO2 04/17/18 03:06 95 Room Air 04/17/18 03:06 95 Room Air 04/17/18 03:01 18 98 Room Air 04/17/18 03:00 68 18 141/85 (103) 98 Room Air 04/17/18 03:00 68 18 141/88 (105) 95 Room Air 147/91 (109) CT chest: Per reading radiologist imaging study is normal no mass CONCLUSION: Normal examination. In particular, no mass observed. Everett Garcia Jr., MD on April 17, 2018 at 5:22 Board Certified Radiologist. This report was verified electronically. Differential Diagnosis Chest pain, ACS, DE, choledocholithiasis, pancreatitis, gastritis, esophageal spasm, GERD, PE Narrative Course Patient placed on cardiac sonographer continuous pulse oximetry with IV access EKG performed shows sinus bradycardia with no acute ST elevation or injury pattern change Patient administered Protonix 40 mg IV aspirin 162 mg by mouth Zofran 4 mg IV maintenance IV fluids 100 cc/h; specimens collections of resulting At 4:10 AM patient reports symptoms markedly improved 3/10 intensity decreased from 7/10 intensity after Zofran and Protonix; troponin I is less than 0.02 not elevated and stress test from 01/01/18 reveals low risk for ischemic event at 1 year patient has no history of hypertension dyslipidemia diabetes tobaccoism or premature onset heart disease in his family. Will administer a one-time dose of 1 gm Carafate slurry. Patient still has mild epigastric tenderness no clinical Rincon sign. Patient denies any shortness of breath pleuritic pain pleuritic chest pain hemoptysis or lower extremity pain or swelling and no recent long distance travel protracted bedrest or surgical procedure no personal history of clotting disorder no family history of clotting disorder. Pain free after carafate; cxr nodule noted on lateral view --rad rec ct At 5:30 AM patient informed of imaging results no evidence for mask CT thorax is normal patient stable for outpatient management and follow-up with her managing provider Diagnosis Primary Impression: Chest pain, atypical Additional Impression: H/O gastroesophageal reflux (GERD) Referrals: [facility] [place] 2 days Patient Instructions: General Instructions Departure Forms: Tests/Procedures, Work Release Special Instructions: no work x 1 day Additional Instructions: Follow clear liquid diet for next 1224 hrs. advance as tolerated to bland/brat diet avoiding fried and fatty foods advance to regular diet Continue current medications as presently prescribed Add Carafate per package directions 2 weeks Take Zofran as prescribed as needed for nausea and/or vomiting Follow-up with your primary care provider within the [facility] Return to the emergency department for any concerns or change in condition Avoid ibuprofen/Advil/Motrin and Aleve/Naprosyn/naproxen Med/Other Pt SpecificInfo: Prescription(s) given Scripts Ondansetron Odt (Zofran Odt) 4 Mg Tab 4 MG SL Q6HR Y for Nausea/Vomiting, #10 TAB 0 Refills Prov: Sara Rosen MD 04/17/18 Sucralfate Liq (Carafate Liq) 1 Gm/10 Ml Susp 1 GM PO Q6HR for Duodenal ulcer for 14 Days, ML 0 Refills on empty stomach Prov: Sara Rosen MD 04/17/18 Disposition: 01 DISCHARGE HOME Condition: Stable Sara Rosen MD April 17, 2018 03:21
[2018-04-17 03:53] LABS: CHLORIDE 108 MEQ/L (98-107); SODIUM (NA) 139 MEQ/L (136-145)
[2018-04-17 03:54] LABS: AUTOMATED NEUTROPHIL # 7.9 TH/MM3 (1.8-7.7); BASOPHIL # 0.1 TH/MM3 (0-0.2); BASOPHIL % 0.8 % (0.0-2.0); EOSINOPHIL # 0.3 TH/MM3 (0-0.4); EOSINOPHIL % 2.3 % (0.0-4.0); HEMATOCRIT 42.6 % (39.0-51.0); HEMOGLOBIN 14.5 GM/DL (13.0-17.0); LYMPH % 16.8 % (9.0-44.0); LYMPHOCYTE # 1.8 TH/MM3 (1.0-4.8); MEAN CORPUSCULAR HEMOGLOBIN 30.4 PG (27.0-34.0); MEAN CORPUSCULAR HGB CONC 34.1 % (32.0-36.0); MEAN PLATELET VOLUME 9.1 FL (7.0-11.0); MONOCYTE # 0.8 TH/MM3 (0-0.9); NEUT % 73.1 % (16.0-70.0); PLATELET COUNT 315 TH/MM3 (150-450); RED BLOOD COUNT 4.78 MIL/MM3 (4.50-5.90); RED CELL DISTRIBUTION WIDTH 12.4 % (11.6-17.2); WHITE BLOOD COUNT 10.9 TH/MM3 (4.0-11.0)
[2018-04-17 03:56] LABS: CALCIUM 8.6 MG/DL (8.5-10.1)
[2018-04-17 03:57] LABS: ALBUMIN 3.6 GM/DL (3.4-5.0); BICARBONATE 24.5 MEQ/L (21.0-32.0); BLOOD UREA NITROGEN 11 MG/DL (7-18); GLUCOSE,RANDOM 118 MG/DL (74-106); PROTHROMBIN TIME - PATIENT 9.9 SEC (9.8-11.6)
[2018-04-17 04:00] LABS: ALT (GPT) 24 U/L (12-78); AST (GOT) 17 U/L (15-37); CREATININE 0.99 MG/DL (0.60-1.30); GLOMERULAR FILTRATION RATE 81 ML/MIN (>89)
--- NOTE | 2018-04-17 04:00 | RADRPT ---
EXAM DATE/TIME: 04/17/2018 03:38 [facility] COMPARISON: No previous studies available for comparison. INDICATIONS : Midline chest pain for 6 hours MEDICAL HISTORY : Hypothyroidism. SURGICAL HISTORY : Cholecystectomy. Head surgery. ENCOUNTER: Initial ACUITY: 1 day PAIN SCORE: 8/10 LOCATION: Bilateral chest FINDINGS: PA and lateral views of the chest demonstrate the lungs to be symmetrically aerated without evidence of infiltrate or effusion. An approximate 3.5 cm rounded area of density projecting over the lung ba ses on the lateral projection without a definitive correlate on the frontal view. The cardiomediastin al contours are unremarkable. Osseous structures are intact. CONCLUSION: 1. Questionable rounded area of density involving the lung bases on the lateral view without correlat e on the frontal view. Differential diagnostic considerations include overlapping density, lower lobe rounded atelectasis, and mass. Consider CT thorax as followup. 2. Otherwise, no acute cardio pulmonary disease. Everett Garcia Jr., MD on April 17, 2018 at 3:56 Board Certified Radiologist. This report was verified electronically.
[2018-04-17 04:01] LABS: TOTAL BILIRUBIN ADULT 0.2 MG/DL (0.2-1.0); TOTAL PROTEIN 7.3 GM/DL (6.4-8.2)
[2018-04-17 04:03] LABS: ALKALINE PHOSPHATASE 96 U/L (45-117)
[2018-04-17 04:05] LABS: TROPONIN I LESS THAN 0.02 NG/ML (0.02-0.05)
[2018-04-17] MEDS ORDERED: SUCRALFATE 1 GM TAB PO ONE (04:15)
[2018-04-17 04:25] VITALS: BP 126/75; PULSE 58; RESP 18; O2SAT 96
[2018-04-17 04:36] LABS: D-DIMER 0.35 MG/L FEU (0.00-0.50)
--- NOTE | 2018-04-17 05:26 | RADRPT ---
EXAM DATE/TIME: 04/17/2018 04:51 [facility] COMPARISON: CHEST PA & LAT, April 17, 2018, 3:38. INDICATIONS : Chest pain with abnormal chest radiograph. RADIATION DOSE: 24.44 CTDIvol (mGy) MEDICAL HISTORY : None SURGICAL HISTORY : None. ENCOUNTER: Initial ACUITY: 1 day PAIN SCALE: 5/10 LOCATION: chest TECHNIQUE: Volumetric scanning of the chest was performed. Using automated exposure control and adjustment of t he mA and/or kV according to patient size, radiation dose was kept as low as reasonably achievable to obtain optimal diagnostic quality images. DICOM format image data is available electronically for r eview and comparison. Follow-up recommendations for detected pulmonary nodules are based at a minimum on nodule size and pa tient risk factors according to Fleischner Society Guidelines. FINDINGS: LUNGS: There is no consolidation or pneumothorax. No concerning pulmonary nodule is visualized. PLEURAE: There is no pleural thickening or pleural effusion. MEDIASTINUM: The heart and great vessels demonstrate no acute abnormality. There is no mediastinal or hilar lymph adenopathy. AXILLAE: Within normal limits. No lymphadenopathy. MUSCULOSKELETAL: Within normal limits for patient age. MISCELLANEOUS: The visualized upper abdominal organs demonstrate no acute abnormality. CONCLUSION: Normal examination. In particular, no mass observed. Everett Garcia Jr., MD on April 17, 2018 at 5:22 Board Certified Radiologist. This report was verified electronically.
[2018-04-17] MEDS ORDERED: ZOFR4TAB3 SL (05:29)
[2018-04-17] MEDS ORDERED: CARA1SUS3 PO (05:29)
[2018-04-17 05:42] VITALS: BP 119/73
--- NOTE | 2018-04-18 11:54 | EKG ---
Date Performed: 04/17/2018 Time Performed: 02:56:30 PTAGE: 47 years EKG: SINUS BRADYCARDIA MINIMAL VOLTAGE CRITERIA FOR LVH, CONSIDER NORMAL VARIANT BORDERLINE ECG PREVIOUS TRACING : 01/01/2018 21.22 DOCTOR: Dominique Hilario Interpretating Date/Time 04/18/2018 11:49:20
== END 2018-04-17 05:45 | disposition home or self-care (01) ==
LOC: PHED 02:48
DX: R07.89 Other chest pain (principal); K21.9 Gastro-esophageal reflux disease without esophagitis; R00.1 Bradycardia, unspecified; E03.9 Hypothyroidism, unspecified; Z88.0 Allergy status to penicillin; Z79.899 Other long term (current) drug therapy
CPT/HCPCS: 71046; 71250; 80053; 82550; 82552; 83690; 83735; 84484; 85025; 85379; 85610; 85730; 93005; 96361; 96374; 96375; 99285; C9113; J2405; J7030

== ENCOUNTER 2018-05-02 21:39 | Observation (INO) | payer OTHER, MEDICARE ==
[~2018-05-02] VITALS: Ht 175.3 cm; Wt 112.0 kg
[~2018-05-02 21:39] MED LIST changes: +CARA1SUS3 PO; +ZOFR4TAB3 SL
[2018-05-02] MEDS ORDERED: IOHEXOL 350 MG/ML 10 ML VIAL (for RAD DIAG) IVCONTRAST ONE (21:40)
[2018-05-02 21:45] VITALS: O2SAT 100
[2018-05-02] MEDS ORDERED: NITROGLYCERIN 0.4 MG SL 25 TABS/BTL SL ONE (22:00)
[2018-05-02] MEDS ORDERED: ASPIRIN 325 MG TAB PO ONE (22:00)
[2018-05-02] MEDS ORDERED: SODIUM CHLORIDE 0.9% FLUSH 10 ML FLUSH IVF PRN (22:00)
[2018-05-02 22:08] VITALS: BP 150/86; PULSE 58
[2018-05-02] MEDS ORDERED: METOCLOPRAMIDE HCL 10 MG/2 ML VIAL IV PUSH ONE (22:15)
[2018-05-02 22:16] LABS: AUTOMATED NEUTROPHIL # 6.4 TH/MM3 (1.8-7.7); BASOPHIL # 0.1 TH/MM3 (0-0.2); BASOPHIL % 1.4 % (0.0-2.0); EOSINOPHIL # 0.2 TH/MM3 (0-0.4); EOSINOPHIL % 2.2 % (0.0-4.0); HEMATOCRIT 44.9 % (39.0-51.0); HEMOGLOBIN 15.7 GM/DL (13.0-17.0); LYMPH % 27.2 % (9.0-44.0); LYMPHOCYTE # 2.8 TH/MM3 (1.0-4.8); MEAN CELL VOLUME 87.9 FL (80.0-100.0); MEAN CORPUSCULAR HEMOGLOBIN 30.7 PG (27.0-34.0); MEAN CORPUSCULAR HGB CONC 34.9 % (32.0-36.0); MEAN PLATELET VOLUME 8.8 FL (7.0-11.0); MONO % 5.7 % (0.0-8.0); MONOCYTE # 0.6 TH/MM3 (0-0.9); NEUT % 63.5 % (16.0-70.0); PLATELET COUNT 308 TH/MM3 (150-450); RED BLOOD COUNT 5.11 MIL/MM3 (4.50-5.90); RED CELL DISTRIBUTION WIDTH 12.6 % (11.6-17.2); WHITE BLOOD COUNT 10.1 TH/MM3 (4.0-11.0)
--- NOTE | 2018-05-02 22:25 | RADRPT ---
EXAM DATE: 05/02/2018 10:21 PM EDT AGE/SEX: 47 years / Male INDICATIONS: Chest pain. CLINICAL DATA: This is the patient's initial encounter. Patient reports that signs and symptoms have been present for 1 day and indicates a pain score of 10/10. MEDICAL/SURGICAL HISTORY: . Hypothyroidism . Cholecystectomy. Head surgery COMPARISON: [facility], CHEST SINGLE AP, 01/01/2018. . FINDINGS: Portable AP view of the chest demonstrates a normal size cardiac silhouette. EKG lines overlie the pa tient. There is mild atelectasis at the lung bases. No effusion, consolidation, or pneumothorax is id entified. Bones and soft tissues demonstrate no acute finding. CONCLUSION: No acute cardiopulmonary abnormality is identified. Electronically signed by: Quintin Farias MD 05/02/2018 10:24 PM EDT
[2018-05-02 22:26] LABS: PROTHROMBIN TIME - PATIENT 10.1 SEC (9.8-11.6)
[2018-05-02] MEDS ORDERED: PANTOPRAZOLE SODIUM 40 MG VIAL IV PUSH ONE (22:30)
[2018-05-02] MEDS ORDERED: SODIUM CHLOR 0.9% 250 ML INJ 250 ML IV ONE (22:30)
--- NOTE | 2018-05-02 22:32 | PD ---
HPI Chief Complaint: Chest Pain Time Seen by Provider: 21:46 Travel History International Travel<30 days: No Contact w/Intl Traveler<30days: No Traveled to known affect area: No History of Present Illness HPI Patient presents to the emergency department complaining of chest pain right sternal area, 20 out of 10, constant, radiating to the back, no alleviating or aggravating factors. Although patient denies that this is similar to the pain he has had in the past, his states that he has had these issues before and is secondary to ulcer disease. He was recently seen in the ER here for the same symptoms. Denies fever, reports chills and some shortness of breath, denies recent travel or lower extremity edema. PFSH Past Medical History Diminished Hearing: No Thyroid Disease: Yes Past Surgical History Appendectomy: Yes Cholecystectomy: Yes Other Surgery: Yes (OPEN HEAD INJURY) Social History Alcohol Use: No Tobacco Use: No Substance Use: No Allergies-Medications (Allergen,Severity, Reaction): Coded Allergies: penicillin G (Verified Allergy, Unknown, 04/17/18) Reported Meds & Prescriptions Reported Meds & Active Scripts Active Zofran Odt (Ondansetron Odt) 4 Mg Tab 4 Mg SL Q6HR PRN Carafate Liq (Sucralfate) 1 Gm/10 Ml Susp 1 Gm PO Q6HR 14 Days on empty stomach Pantoprazole (Pantoprazole Sodium) 40 Mg Tab 40 Mg PO Q12HR take twice daily for two weeks and then once daily Reported Levothyroxine (Levothyroxine Sodium) 25 Mcg Tab 25 Mcg PO DAILY Review of Systems Except as stated in HPI: all other systems reviewed are Neg Physical Exam Narrative GENERAL: + discomfort SKIN: Diaphoretic HEAD: Atraumatic. Normocephalic. EYES: Pupils equal and round. No scleral icterus. No injection or drainage. ENT: No nasal bleeding or discharge. Mucous membranes pink and moist. NECK: Trachea midline. No JVD. No focal C-spine tenderness CARDIOVASCULAR: Regular rate and rhythm. No murmur appreciated. Right chest wall tender to palpation. RESPIRATORY: No accessory muscle use. Clear to auscultation. Breath sounds equal bilaterally. GASTROINTESTINAL: Abdomen soft, non-tender, nondistended. Hepatic and splenic margins not palpable. MUSCULOSKELETAL: No obvious deformities. No clubbing. No cyanosis. No edema. No focal T or L-spine tenderness, but bilateral tenderness when palpate muscle along upper T spine. NEUROLOGICAL: Awake and alert. No obvious cranial nerve deficits. Motor grossly within normal limits. Normal speech. PSYCHIATRIC: Appropriate mood and affect; insight and judgment normal. Data Data Last Documented VS Vital Signs Date Time Temp Pulse Resp B/P (MAP) Pulse Ox O2 Delivery O2 Flow Rate FiO2 05/03/18 02:27 52 16 152/76 (101) 96 Room Air Orders Orders Electrocardiogram (05/02/18 21:51) B-Type Natriuretic Peptide (05/02/18 21:51) Ckmb (Isoenzyme) Profile (05/02/18 21:51) Complete Blood Count With Diff (05/02/18 21:51) Comprehensive Metabolic Panel (05/02/18 21:51) Magnesium (Mg) (05/02/18 21:51) Prothrombin Time / Inr (Pt) (05/02/18 21:51) Act Partial Throm Time (Ptt) (05/02/18 21:51) Troponin I (05/02/18 21:51) Chest, Single Ap (05/02/18 21:51) Ecg Monitoring (05/02/18 21:51) Bilateral Bp Monitoring (05/02/18 21:51) Iv Access Insert/Monitor (05/02/18 21:51) Oximetry (05/02/18 21:51) Aspirin (Aspirin) (05/02/18 22:00) Sodium Chloride 0.9% Flush (Ns Flush) (05/02/18 22:00) Nitroglycerin Sl (Nitrostat Sl) (05/02/18 22:00) Metoclopramide Inj (Reglan Inj) (05/02/18 22:15) I-Stat Profile (05/02/18 21:58) Pantoprazole Inj (Protonix Inj) (05/02/18 22:30) Sodium Chlor 0.9% 250 Ml Inj (Ns 250 Ml (05/02/18 22:30) Cta Thor Abd Aorta W Iv C W3d (05/02/18 ) Acetaminophen (Tylenol) (05/02/18 23:30) CKMB (05/02/18 21:58) CKMB% (05/02/18 21:58) Cyclobenzaprine (Flexeril) (05/03/18 00:30) Ckmb (Isoenzyme) Profile (05/03/18 00:54) Troponin I (05/03/18 00:54) Iohexol 350 Inj (Omnipaque 350 Inj) (05/02/18 21:40) CKMB (05/03/18 01:00) CKMB% (05/03/18 01:00) Admit Order (Ed Use Only) (05/03/18 02:25) Labs Laboratory Tests Test 05/02/18 21:58 05/03/18 01:00 White Blood Count 10.1 TH/MM3 Red Blood Count 5.11 MIL/MM3 Hemoglobin 15.7 GM/DL Bedside Hemoglobin G/DL Hematocrit 44.9 % Bedside Hematocrit % Mean Corpuscular Volume 87.9 FL Mean Corpuscular Hemoglobin 30.7 PG Mean Corpuscular Hemoglobin Concent 34.9 % Red Cell Distribution Width 12.6 % Platelet Count 308 TH/MM3 Mean Platelet Volume 8.8 FL Neutrophils (%) (Auto) 63.5 % Lymphocytes (%) (Auto) 27.2 % Monocytes (%) (Auto) 5.7 % Eosinophils (%) (Auto) 2.2 % Basophils (%) (Auto) 1.4 % Neutrophils # (Auto) 6.4 TH/MM3 Lymphocytes # (Auto) 2.8 TH/MM3 Monocytes # (Auto) 0.6 TH/MM3 Eosinophils # (Auto) 0.2 TH/MM3 Basophils # (Auto) 0.1 TH/MM3 CBC Comment DIFF FINAL Differential Comment Prothrombin Time 10.1 SEC Prothromb Time International Ratio 1.0 RATIO Activated Partial Thromboplast Time 25.9 SEC Bedside Sodium 139 MMOL/L Blood Urea Nitrogen 14 MG/DL Creatinine 1.20 MG/DL Random Glucose 98 MG/DL Total Protein 8.1 GM/DL Albumin 4.3 GM/DL Calcium Level 9.0 MG/DL Magnesium Level 2.1 MG/DL Alkaline Phosphatase 86 U/L Aspartate Amino Transf (AST/SGOT) 21 U/L Alanine Aminotransferase (ALT/SGPT) 33 U/L Total Bilirubin 0.5 MG/DL Sodium Level 140 MEQ/L Potassium Level 4.1 MEQ/L Chloride Level 103 MEQ/L Carbon Dioxide Level 24.7 MEQ/L Bedside Potassium 4.0 MMOL/L Bedside Chloride 101 MMOL/L Anion Gap 12 MEQ/L Bedside Blood Urea Nitrogen 15 MG/DL Bedside Creatinine 1.2 MG/DL Estimat Glomerular Filtration Rate 65 ML/MIN Bedside Glucose 105 MG/DL Total Creatine Kinase 151 U/L 148 U/L Creatine Kinase MB 1.1 NG/ML 1.0 NG/ML Troponin I LESS THAN 0.02 NG/ML LESS THAN 0.02 NG/ML B-Type Natriuretic Peptide 9 PG/ML Thyroid Stimulating Hormone 3rd Gen 1.700 uIU/ML MDM Medical Decision Making Medical Screen Exam Complete: Yes Emergency Medical Condition: Yes Interpretation(s) EKG: Sinus bradycardia, rate 58, no ST elevation, acute elevated waves in V2 through V6, present on prior EKG (04/17/18). Labs: cbc and coags wnl; cardiac enzymes within normal limits Last Impressions Chest X-Ray 05/02/18 2151 Signed Impressions: CONCLUSION: No acute cardiopulmonary abnormality is identified. Aorta CTA 05/02/18 0000 Signed Impressions: CONCLUSION: 1. The aorta is intact. 2. Hepatic steatosis. 3. Gallstones Differential Diagnosis ACS, PE, GERD, ulcer disease, gastritis, costochondritis Narrative Course He presents to the emergency department complaining of chest pain. IV access was obtained the patient was placed on rcp. EKG, chest x-ray and labs ordered. Patient given 1 nitroglycerin and 325 mg of aspirin p.o. Subsequently vomited and was given 10 mg IV Compazine. Additionally patient was given 40 mg of Protonix and IV fluids. Bilateral BP is 150/86 and 142/78. Patient given Tylenol 650 mg p.o. for back pain and 10 mg Flexeril p.o. States some improvement in his symptoms. 02:18-> Patient's initial presentation was concerning for ACS or dissection. He was diaphoretic, vomiting, complaining of severe substernal chest pain and back pain and bradycardic. He was given aspirin and sublingual nitroglycerin and vomited. Sent the initial EKG to Dr. Esteves, Cardiology construction quality control manager. Although there was no STEMI, there was concern about the patient's presentation. He advised to transfer to the main for possible cath in the morning and start nitro and heparin drip and get CT to r/o dissection. Upon my reassessment while awaiting CT scan, patient's family states that he had been to the emergency department with similar symptoms. Upon review of the chart, pain at that time was thought to be related to ulcer/reflux. Was given Protonix and aspirin during that visit and improved. I gave him 40 mg IV Protonix, 10 milligrams IV Compazine, and aspirin and he appeared to improve. Heparin and nitro drip were held secondary to patient's improvement and awaiting CT to rule out dissection. There was no evidence of dissection on the CT, chest pain eased but patient continued to complain of back pain. He was given Flexeril and Tylenol for the pain, reported some improvement. Second set of cardiac enzymes were negative and repeat EKG showed no acute change, sinus bradycardia at 46 with no STEMI. I will admit patient for observation for the bradycardia, cardiology eval, and pain control. Patient has a history of hypothyroid TSH with free T3 and T4 have been sent. Also given 50 mg of tramadol p.o. for back pain. Patient states that he had a previous back injury a few years ago but denies any recent trauma. States back pain feels like a pulled muscle. Also, spoke to Dr. Akers about CT results, no evidence of cholecystitis, positive pressure in gallstones resulting in air not pathologic, gall bladder looked fine. Discussed with admit hospital, who will order right upper quadrant ultrasound to evaluate further. Physician Communication Physician Communication Spoke to Dr. Esteves cardiology construction quality control manager. Nothing on EKG was concerning for STEMI , but with patient's presentation and complaint of chest pain advised to get CT scan to rule out dissection as he's complaining of pain going to his back and get nitro drip and heparin drip, transfer to the main for possible cath tomorrow. Spoke to Dr. Esteves again later in the shift and advised of patient's change while in the ER as it relates to his physical improvement, the repeat EKG and cardiac enzymes showing no acute cardiac abnormality, and the negative CT scan for dissection but positive for gallstones. Diagnosis Primary Impression: Chest pain Qualified Codes: R07.9 - Chest pain, unspecified Additional Impression: Back pain Qualified Codes: M54.6 - Pain in thoracic spine Admitting Information Admitting Physician Requests: Observation Condition: Stable Jessica Menendez MD May 02, 2018 22:32
[2018-05-02 22:33] VITALS: BP 142/78
[2018-05-02 22:56] VITALS: BP 137/73; PULSE 53; RESP 18; O2SAT 97
[2018-05-02 23:28] VITALS: BP 143/80; PULSE 52; RESP 16; O2SAT 96
[2018-05-02] MEDS ORDERED: ACETAMINOPHEN 325 MG TAB PO ONE (23:30)
[2018-05-03] VITALS (7 sets, daily range): BP systolic 122–152; BP diastolic 66–76; PULSE 52–83; RESP 16–20; TEMP 97.2–99.1; O2SAT 92–96
[2018-05-03 00:03] LABS: ALKALINE PHOSPHATASE 86 U/L (45-117); TOTAL BILIRUBIN ADULT 0.5 MG/DL (0.2-1.0); TOTAL PROTEIN 8.1 GM/DL (6.4-8.2); TROPONIN I LESS THAN 0.02 NG/ML (0.02-0.05)
[2018-05-03 00:17] LABS: ALBUMIN 4.3 GM/DL (3.4-5.0); ALT (GPT) 33 U/L (12-78); AST (GOT) 21 U/L (15-37); BICARBONATE 24.7 MEQ/L (21.0-32.0); BLOOD UREA NITROGEN 14 MG/DL (7-18); CHLORIDE 103 MEQ/L (98-107); GLOMERULAR FILTRATION RATE 65 ML/MIN (>89); GLUCOSE,RANDOM 98 MG/DL (74-106); MAGNESIUM 2.1 MG/DL (1.5-2.5); SODIUM (NA) 140 MEQ/L (136-145)
[2018-05-03] MEDS ORDERED: CYCLOBENZAPRINE HCL 10 MG TAB PO ONE (00:30)
--- NOTE | 2018-05-03 01:11 | RADRPT ---
EXAM DATE: 05/03/2018 12:52 AM EDT AGE/SEX: 47 years / Male INDICATIONS: CHEST PAIN RIGHT STERNAL AREA CLINICAL DATA: This is the patient's initial encounter. Patient reports that signs and symptoms have been present for 1 day and indicates a pain score of 10/10. MEDICAL/SURGICAL HISTORY: Ulcers. THYROID DISEASE Cholecystectomy. Appendectomy. RADIATION DOSE: 23.11 CTDI (mGy) COMPARISON: No prior [facility] exams available for comparison. TECHNIQUE: Volumetric scanning was performed using a multi-row detector CT scanner during bolus infu andrew of 85 ml Omnipaque 350 (iohexol) nonionic water-soluble contrast as a single exam dose. The da ta was post processed with a variety of visualization algorithms including full volume maximum intens ity projection, multi-planar sliding thin slab reformation, curved planar reformation, and surface re ndering techniques. Using automated exposure control and adjustment of the mA and/or kV according to patient size, radiation dose was kept as low as reasonably achievable to obtain optimal diagnostic q uality images. FINDINGS: Lungs: There is no consolidation or pneumothorax. No concerning pulmonary nodule is visualized. No pleural fluid is present. Mediastinum: No abnormally enlarged lymph nodes by CT criteria. No axillary or hilar abnormalities a re identified. Abdomen: There is decreased attenuation to the liver. There are several foci of air seen within the gallbladder consistent with vacuum phenomenon within gallstones. The liver and spleen are free of foc al defects. The gallbladder and pancreas demonstrate no abnormality. The adrenal glands are normal. T he kidneys demonstrate no evidence of solid renal mass or hydronephrosis. No free fluid or abdominal masses are identified. No para-aortic adenopathy is seen. Pelvis: No evidence of free fluid or pelvic mass. No abnormally enlarged inguinal or retroperitoneal lymph nodes are present. The bladder is unremarkable. Thoracic Aorta: The thoracic aortic root is normal with normal branching of the great vessels. Ther e is no evidence of aneurysm or dissection. Abdominal Aorta: The aorta is normal in caliber without aneurysm or dissection. The renal arteries are patent bilaterally. The proximal celiac and superior mesenteric arteries are patent and normal i n diameter. Pelvic Vessels: The internal iliac and external iliac vessels are patent without aneurysm or stenosi s. CONCLUSION: 1. The aorta is intact. 2. Hepatic steatosis. 3. Gallstones Electronically signed by: Quintin Akers MD 05/03/2018 1:10 AM EDT
[2018-05-03 01:56] LABS: TROPONIN I LESS THAN 0.02 NG/ML (0.02-0.05)
[2018-05-03] MEDS ORDERED: SODIUM CHLORIDE 0.9% FLUSH 10 ML FLUSH IV FLUSH PRN (02:30)
[2018-05-03] MEDS ORDERED: MAGNESIUM HYDROXIDE SUSP 30 ML CUP PO PRN (02:30)
[2018-05-03] MEDS ORDERED: NALOXONE HCL 0.4 MG/ML AMP IV PUSH PRN (02:30)
[2018-05-03] MEDS ORDERED: SENNOSIDES 8.6 MG TAB PO PRN (02:30)
[2018-05-03] MEDS ORDERED: LACTULOSE SYRUP 20 GM/30 ML CUP PO PRN (02:30)
[2018-05-03] MEDS ORDERED: BISACODYL 10 MG SUPP RECTAL PRN (02:30)
[2018-05-03] MEDS ORDERED: ACETAMINOPHEN 325 MG TAB PO PRN (02:30)
[2018-05-03] MEDS ORDERED: traMADol HCL 50 MG TAB PO ONE (03:00)
[2018-05-03] MEDS ORDERED: ONDANSETRON ODT 4 MG TAB SL PRN (05:00)
[2018-05-03] MEDS ORDERED: ACETAMINOPHEN/HYDROcodone 325 MG/5 MG TAB PO ONE (05:00)
--- NOTE | 2018-05-03 08:02 | HHI.HP ---
[facility] Primary Care Physician [facility] Admission Diagnosis Chest pain, bradycardia, back pain Diagnoses: Chief Complaint: Chest pain Abdominal pain Travel History International Travel<30 Days: No Contact w/Intl Traveler <30 Da: No Traveled to Known Affected Are: No History of Present Illness This is a 47-year-old male patient with a known medical history of thyroid disease and GERD who presented to the ED with complaints of chest pain. Patient states that as he was sitting around yesterday he developed a midsternal chest pain that was characterized as constant in sharp in nature, admits that the pain worsened with any movement and denied any alleviating factors. Patient does state that he ate pizza yesterday with red sauce and shortly after developed nausea, denied any vomiting, sweating or shortness of breath. He does admit to feeling the similar symptoms intermittently in the last few weeks as well as in December this year. Patient was hospitalized in December underwent a cardiac stress test as well as an upper EGD with findings of mild gastritis. Cardiac stress test was negative. Patient does admit to subjective fevers, although he did not take his temperature at home, he does admit to chills as well as cough. Denies any diarrhea, bloody stools or black stools. At the time of assessment patient does complain of back pain, chest pain has relieved with some continued abdominal pain. Review of Systems Constitutional: COMPLAINS OF: Fatigue, Fever, Chills Eyes: DENIES: Diplopia Respiratory: COMPLAINS OF: Cough, DENIES: Shortness of breath Cardiovascular: COMPLAINS OF: Chest pain, DENIES: Palpitations Gastrointestinal: COMPLAINS OF: Abdominal pain, Nausea, DENIES: Black stools, Bloody stools, Constipation, Diarrhea, Vomiting Musculoskeletal: COMPLAINS OF: Back pain, DENIES: Joint pain Hematologic/lymphatic: DENIES: Bruising Immunologic/allergic: DENIES: Eczema Neurologic: DENIES: Abnormal gait Psychiatric: COMPLAINS OF: Anxiety Except as stated in HPI: all other systems reviewed are Neg Past Family Social History Past Medical History Thyroid disease GERD Past Surgical History Appendectomy Open head injury, unspecified surgery Reported Medications Active Zofran Odt (Ondansetron Odt) 4 Mg Tab 4 Mg SL Q6HR PRN Carafate Liq (Sucralfate) 1 Gm/10 Ml Susp 1 Gm PO Q6HR 14 Days on empty stomach Pantoprazole (Pantoprazole Sodium) 40 Mg Tab 40 Mg PO Q12HR take twice daily for two weeks and then once daily Reported Levothyroxine (Levothyroxine Sodium) 25 Mcg Tab 0.05 Mg PO DAILY B12 (Cyanocobalamin) 1,000 Mcg Tab DAILY Pantoprazole (Pantoprazole Sodium) 40 Mg Tab 40 Mg PO DAILY Ibuprofen 400 Mg Tab 400 Mg PO DAILY Levothyroxine (Levothyroxine Sodium) 25 Mcg Tab 25 Mcg PO DAILY Allergies: Coded Allergies: penicillin G (Verified Allergy, Unknown, 04/17/18) Active Ordered Medications Current Medications Medications (Trade) Dose Ordered Sig/Dominguez Route Start Time Stop Time Status Last Admin (NS Flush) 2 ml UNSCH PRN IV FLUSH 05/03/18 02:30 (NS Flush) 2 ml BID IV FLUSH 05/03/18 09:00 05/03/18 08:38 (Tylenol) 650 mg Q4H PRN PO 05/03/18 02:30 (Narcan Inj) 0.4 mg UNSCH PRN IV PUSH 05/03/18 02:30 (Milk Of Magnesia Liq) 30 ml Q12H PRN PO 05/03/18 02:30 (Senokot) 17.2 mg Q12H PRN PO 05/03/18 02:30 (Dulcolax Supp) 10 mg DAILY PRN RECTAL 05/03/18 02:30 (Lactulose Liq) 30 ml DAILY PRN PO 05/03/18 02:30 (Zofran Odt) 4 mg Q6H PRN SL 05/03/18 05:00 05/03/18 05:05 (Troy 5-325 Mg) 1 tab Q6H PRN PO 05/03/18 08:15 (Troy 5-325 Mg) 2 tab Q6H PRN PO 05/03/18 08:15 05/03/18 08:35 (Morphine Inj) 2 mg Q4H PRN IV PUSH 05/03/18 08:15 Piperacillin Sod/ Tazobactam Sod 100 ml @ 200 mls/hr Q6H IV 05/03/18 13:00 (Benadryl Inj) 25 mg ONCE ONCE IV PUSH 05/03/18 12:00 05/03/18 12:01 (Synthroid) 50 mcg DAILY@0600 PO 05/04/18 06:00 Family History Family history significant for hypertension. Social History Denies any tobacco, alcohol or illicit drug use. Physical Exam Vital Signs Vital Signs Date Time Temp Pulse Resp B/P (MAP) Pulse Ox O2 Delivery O2 Flow Rate FiO2 05/03/18 03:15 97.2 55 20 146/67 (93) 96 05/03/18 03:03 05/03/18 02:27 52 16 152/76 (101) 96 Room Air 05/02/18 23:28 52 16 143/80 (101) 96 Room Air 05/02/18 22:56 53 18 137/73 (94) 97 Room Air 05/02/18 22:38 18 93 Room Air 05/02/18 22:33 142/78 (99) 05/02/18 22:23 58 28 99 Room Air 05/02/18 22:08 58 150/86 (107) 05/02/18 21:45 100 Room Air Physical Exam GENERAL: Well-developed, well-nourished patient with apparent complaints of back pain as well as mild abdominal pain. SKIN: Warm and dry. No rash. HEAD: Normocephalic. Atraumatic. EYES: Pupils equal and round. No scleral icterus. No injection or drainage. ENT: No nasal bleeding or discharge. Mucous membranes pink and moist. NECK: Supple. Trachea midline. CARDIOVASCULAR: Regular rate and rhythm. S1, S2 noted. No murmur appreciated. RESPIRATORY: No accessory muscle use. Clear to auscultation. Breath sounds equal bilaterally. GASTROINTESTINAL: Abdomen soft, nondistended. Mildly painful to palpation in bilateral upper quadrants. Normoactive bowel sounds x4. MUSCULOSKELETAL: No obvious deformities. Extremities without clubbing, cyanosis , or edema. NEUROLOGICAL: Awake and alert. No obvious cranial nerve deficits. Motor grossly within normal limits. 5/5 muscle strength in bilateral upper and lower extremities. Normal speech. PSYCHIATRIC: Appropriate mood and affect; insight and judgment normal. Laboratory Laboratory Tests Test 05/02/18 21:58 05/03/18 01:00 White Blood Count 10.1 Red Blood Count 5.11 Hemoglobin 15.7 Bedside Hemoglobin Hematocrit 44.9 Bedside Hematocrit Mean Corpuscular Volume 87.9 Mean Corpuscular Hemoglobin 30.7 Mean Corpuscular Hemoglobin Concent 34.9 Red Cell Distribution Width 12.6 Platelet Count 308 Mean Platelet Volume 8.8 Neutrophils (%) (Auto) 63.5 Lymphocytes (%) (Auto) 27.2 Monocytes (%) (Auto) 5.7 Eosinophils (%) (Auto) 2.2 Basophils (%) (Auto) 1.4 Neutrophils # (Auto) 6.4 Lymphocytes # (Auto) 2.8 Monocytes # (Auto) 0.6 Eosinophils # (Auto) 0.2 Basophils # (Auto) 0.1 CBC Comment DIFF FINAL Differential Comment Prothrombin Time 10.1 Prothromb Time International Ratio 1.0 Activated Partial Thromboplast Time 25.9 Bedside Sodium 139 Blood Urea Nitrogen 14 Creatinine 1.20 Random Glucose 98 Total Protein 8.1 Albumin 4.3 Calcium Level 9.0 Magnesium Level 2.1 Alkaline Phosphatase 86 Aspartate Amino Transf (AST/SGOT) 21 Alanine Aminotransferase (ALT/SGPT) 33 Total Bilirubin 0.5 Sodium Level 140 Potassium Level 4.1 Chloride Level 103 Carbon Dioxide Level 24.7 Bedside Potassium 4.0 Bedside Chloride 101 Anion Gap 12 Bedside Blood Urea Nitrogen 15 Bedside Creatinine 1.2 Estimat Glomerular Filtration Rate 65 Bedside Glucose 105 Total Creatine Kinase 151 148 Creatine Kinase MB 1.1 1.0 Troponin I LESS THAN 0.02 LESS THAN 0.02 B-Type Natriuretic Peptide 9 Thyroid Stimulating Hormone 3rd Gen 1.700 Result Diagram: 05/02/18215705/02/182157 Imaging Last Impressions Gall Bladder Ultrasound 05/03/18 0000 Signed Impressions: CONCLUSION: 1. Ultrasound findings consistent with acute cholecystitis. 2. Fatty infiltration of the liver with focal fat sparing identified adjacent to the gallbladder fossa. Chest X-Ray 05/02/182150 Signed Impressions: CONCLUSION: No acute cardiopulmonary abnormality is identified. Aorta CTA 05/02/18 0000 Signed Impressions: CONCLUSION: 1. The aorta is intact. 2. Hepatic steatosis. 3. Gallstones Septic Shock Reassessment Septic shock perfusion: reassessment completed Caprini VTE Risk Assessment Caprini VTE Risk Assessment: No/Low Risk (score <= 1) Caprini Risk Assessment Model Point Value = 1 Point Value = 2 Point Value = 3 Point Value = 5 Age 41-60 Minor surgery BMI > 25 kg/m2 Swollen legs Varicose veins or History of unexplained or recurrent spontaneous Oral contraceptives or hormone replacement Sepsis (< 1 month) Serious lung disease, including pneumonia (< 1 month) Abnormal pulmonary function Acute myocardial infarction Congestive heart failure (< 1 month) History of inflammatory bowel disease Medical patient at bed rest Age 61-74 Arthroscopic surgery Major open surgery (> 45 min) Laparoscopic surgery (> 45 min) Malignancy Confined to bed (> 72 hours) Immobilizing plaster cast Central venous access Age >= 75 History of VTE Family history of VTE Factor V Leiden Prothrombin [id number] Lupus anticoagulant Anticardiolipin antibodies Elevated serum homocysteine Heparin-induced thrombocytopenia Other congenital or acquired thrombophilia Stroke (< 1 month) Elective arthroplasty Hip, pelvis, or leg fracture Acute spinal cord injury (< 1 month) Prophylaxis Regimen Total Risk Factor Score Risk Level Prophylaxis Regimen 0-1 Low Early ambulation 2 Moderate Order ONE of the following: *Sequential Compression Device (SCD) *Heparin 5000 units SQ BID 3-4 Higher Order ONE of the following medications: *Heparin 5000 units SQ TID *Enoxaparin/Lovenox 40 mg SQ daily (WT < 150 kg, CrCl > 30 mL/min) *Enoxaparin/Lovenox 30 mg SQ daily (WT < 150 kg, CrCl > 10-29 mL/min) *Enoxaparin/Lovenox 30 mg SQ BID (WT < 150 kg, CrCl > 30 mL/min) AND/OR *Sequential Compression Device (SCD) 5 or more Highest Order ONE of the following medications: *Heparin 5000 units SQ TID (Preferred with Epidurals) *Enoxaparin/Lovenox 40 mg SQ daily (WT < 150 kg, CrCl > 30 mL/min) *Enoxaparin/Lovenox 30 mg SQ daily (WT < 150 kg, CrCl > 10-29 mL/min) *Enoxaparin/Lovenox 30 mg SQ BID (WT < 150 kg, CrCl > 30 mL/min) AND *Sequential Compression Device (SCD) Assessment and Plan Problem List: (1) Chest pain ICD Code: R07.9 - Chest pain, unspecified Status: Acute (2) Cholecystitis ICD Code: K81.9 - Cholecystitis, unspecified (3) Back pain ICD Code: M54.9 - Dorsalgia, unspecified Status: Acute Assessment and Plan 47-year-old male patient with a known medical history of thyroid disease and GERD who presented to the ED with complaints of chest pain Atypical chest pain - Serial EKGs and serial troponins have been ordered for ruling out ACS purposes. Troponin trend flat. - EKG unremarkable. [facility] on-call was updated in ED overnight, concern for aortic dissection. - A CT aorta was done with no significant findings of aortic dissection. Patient underwent a Lexiscan back in December with no significant findings. - Was given aspirin and nitroglycerin in ED. - Cardiology in to see patient this morning with no further recommendations. - Chest pain is likely secondary to GI etiology. Workup is in progress. Will continue to monitor vitals and cardiac telemetry for now. Monitor for any arrhythmias. Abdominal pain, nausea and vomiting suspect secondary to possible cholecystitis - CBC and BMP reviewed essentially unremarkable. LFTs within normal limits. - Gallbladder ultrasound showing wall thickening and adjacent pericholecystic fluid with multiple stones. - General surgery consulted, appreciate input and recommendations. Will likely undergo a cholecystectomy this afternoon. - Will keep n.p.o. Started on Zosyn IV. - Pain control with Troy p.o. and morphine IV for breakthrough. - Zofran available for nausea. - Was given Protonix in ED. - Supportive care. Back pain - Gave Toradol IV 1. With some relief. - Supportive care. Hypothyroidism, chronic: We will continue home levothyroxine. Next DVT prophylaxis: SCDs. Problem Qualifiers (1) Chest pain: Qualified Codes: R07.9 - Chest pain, unspecified (2) Back pain: Qualified Codes: M54.6 - Pain in thoracic spine Josiane Noe May 03, 2018 08:02
[2018-05-03] MEDS ORDERED: KETOROLAC TROMETHAMINE 30 MG/ML (IVP) VIAL IV PUSH ONE (08:15)
[2018-05-03] MEDS ORDERED: ACETAMINOPHEN/HYDROcodone 325 MG/5 MG TAB PO PRN (08:15)
[2018-05-03] MEDS ORDERED: MORPHINE SULFATE 2 MG/ML SYRINGE IV PUSH PRN (08:15)
[2018-05-03] MEDS: ACETAMINOPHEN/HYDROcodone 325 MG/5 MG TAB PO PRN ×2 (08:35→19:16)
[2018-05-03] MEDS: SODIUM CHLORIDE 0.9% FLUSH 10 ML FLUSH IV FLUSH SCH ×2 (08:38→19:11)
--- NOTE | 2018-05-03 09:09 | PD.CONS ---
HPI Consult [facility]ed [facility] of Present Illness 47-year-old male with a past medical history of GERD/gastritis, and hypothyroidism who presented for chest and back pain. The patient states he had onset of severe chest pain yesterday evening lasted for several hours. The pain is somewhat alleviated this morning after receiving pain medication. EKG 2 showed sinus bradycardia with no ischemic changes. Troponin 0 0.023. CTA of the aorta was done which showed no dissection. The patient was recently admitted to the chest pain center and had nonischemic Lexiscan 01/02/18. The patient's chief complaint at this time is back pain. He denies any prior history of heart disease. Discussed with hospitalist team who are currently doing GI workup. [facility] (Landon Rachel) Review of Systems Negative except as stated in HPI (Landon Rachel) Past Family Social History Allergies: Coded Allergies: penicillin G (Verified Allergy, Unknown, 04/17/18) Past Medical History GERD/gastritis Hypothyroidism Past Surgical History Appendectomy Cholecystectomy Brain surgery status post trauma Reported Medications Reported Meds & Active Scripts Active Zofran Odt (Ondansetron Odt) 4 Mg Tab 4 Mg SL Q6HR PRN Carafate Liq (Sucralfate) 1 Gm/10 Ml Susp 1 Gm PO Q6HR 14 Days on empty stomach Pantoprazole (Pantoprazole Sodium) 40 Mg Tab 40 Mg PO Q12HR take twice daily for two weeks and then once daily Reported Levothyroxine (Levothyroxine Sodium) 25 Mcg Tab 25 Mcg PO DAILY Active Ordered Medications Current Medications Medications (Trade) Dose Ordered Sig/Dominguez Route Start Time Stop Time Status Last Admin (NS Flush) 2 ml UNSCH PRN IV FLUSH 05/03/18 02:30 (NS Flush) 2 ml BID IV FLUSH 05/03/18 09:00 05/03/18 08:38 (Tylenol) 650 mg Q4H PRN PO 05/03/18 02:30 (Narcan Inj) 0.4 mg UNSCH PRN IV PUSH 05/03/18 02:30 (Milk Of Magnesia Liq) 30 ml Q12H PRN PO 05/03/18 02:30 (Senokot) 17.2 mg Q12H PRN PO 05/03/18 02:30 (Dulcolax Supp) 10 mg DAILY PRN RECTAL 05/03/18 02:30 (Lactulose Liq) 30 ml DAILY PRN PO 05/03/18 02:30 (Zofran Odt) 4 mg Q6H PRN SL 05/03/18 05:00 05/03/18 05:05 ([place] 5-325 Mg) 1 tab Q6H PRN PO 05/03/18 08:15 ([place] 5-325 Mg) 2 tab Q6H PRN PO 05/03/18 08:15 05/03/18 08:35 (Morphine Inj) 2 mg Q4H PRN IV PUSH 05/03/18 08:15 Family History No premature cardiac disease, father has diabetes and history of prostate and lung cancer Mother is alive and well Social History , retired [employer], no tobacco or alcohol dependency issues (Landon Rachel) Physical Exam Vital Signs Vital Signs Date Time Temp Pulse Resp B/P (MAP) Pulse Ox O2 Delivery O2 Flow Rate FiO2 05/03/18 03:15 97.2 55 20 146/67 (93) 96 05/03/18 03:03 05/03/18 02:27 52 16 152/76 (101) 96 Room Air 05/02/18 23:28 52 16 143/80 (101) 96 Room Air 05/02/18 22:56 53 18 137/73 (94) 97 Room Air 05/02/18 22:38 18 93 Room Air 05/02/18 22:33 142/78 (99) 05/02/18 22:23 58 28 99 Room Air 05/02/18 22:08 58 150/86 (107) 05/02/18 21:45 100 Room Air Physical Exam GENERAL: Well-developed well-nourished. Laying in bed. Appears comfortable in no acute distress. NECK: No carotid bruits. No JVD. CARDIOVASCULAR: Regular rate and rhythm. No murmur appreciated. RESPIRATORY: No accessory muscle use. Clear to auscultation. Breath sounds equal bilaterally. MUSCULOSKELETAL: No clubbing or cyanosis. No edema. NEUROLOGICAL: Awake and alert. Normal speech. Laboratory Laboratory Tests Test 05/02/18 21:58 05/03/18 01:00 05/03/18 08:20 White Blood Count 10.1 Red Blood Count 5.11 Hemoglobin 15.7 Bedside Hemoglobin Hematocrit 44.9 Bedside Hematocrit Mean Corpuscular Volume 87.9 Mean Corpuscular Hemoglobin 30.7 Mean Corpuscular Hemoglobin Concent 34.9 Red Cell Distribution Width 12.6 Platelet Count 308 Mean Platelet Volume 8.8 Neutrophils (%) (Auto) 63.5 Lymphocytes (%) (Auto) 27.2 Monocytes (%) (Auto) 5.7 Eosinophils (%) (Auto) 2.2 Basophils (%) (Auto) 1.4 Neutrophils # (Auto) 6.4 Lymphocytes # (Auto) 2.8 Monocytes # (Auto) 0.6 Eosinophils # (Auto) 0.2 Basophils # (Auto) 0.1 CBC Comment DIFF FINAL Differential Comment Prothrombin Time 10.1 Prothromb Time International Ratio 1.0 Activated Partial Thromboplast Time 25.9 Bedside Sodium 139 Blood Urea Nitrogen 14 Creatinine 1.20 Random Glucose 98 Total Protein 8.1 Albumin 4.3 Calcium Level 9.0 Magnesium Level 2.1 Alkaline Phosphatase 86 Aspartate Amino Transf (AST/SGOT) 21 Alanine Aminotransferase (ALT/SGPT) 33 Total Bilirubin 0.5 Sodium Level 140 Potassium Level 4.1 Chloride Level 103 Carbon Dioxide Level 24.7 Bedside Potassium 4.0 Bedside Chloride 101 Anion Gap 12 Bedside Blood Urea Nitrogen 15 Bedside Creatinine 1.2 Estimat Glomerular Filtration Rate 65 Bedside Glucose 105 Total Creatine Kinase 151 148 Creatine Kinase MB 1.1 1.0 Troponin I LESS THAN 0.02 LESS THAN 0.02 LESS THAN 0.02 B-Type Natriuretic Peptide 9 Thyroid Stimulating Hormone 3rd Gen 1.700 (Landon Rachel) Result Diagram: 05/02/18215705/02/182157 Imaging Last Impressions Chest X-Ray 05/02/182150 Signed Impressions: CONCLUSION: No acute cardiopulmonary abnormality is identified. Aorta CTA 05/02/18 0000 Signed Impressions: CONCLUSION: 1. The aorta is intact. 2. Hepatic steatosis. 3. Gallstones (Landon Rachel) Assessment and Plan Assessment and Plan 47-year-old male with a past medical history of GERD/gastritis, and hypothyroidism who presented for chest and back pain Atypical chest pain: The patient is ruled out for ACS and has a recent nonischemic Lexiscan. CTA of the aorta was unremarkable. No further cardiology workup needed at this time. Discussed with hospitalist team, workup for noncardiac causes of chest pain inpatient [facility]. Discussed Condition With Patient, hospitalist Dr. Danielito FLEMING (Landon Rachel) Assessment and Plan atypical symptoms CTA neg trop neg ekg neg recent lexiscan neg DC planning [facility] with [facility] (August Esteves MD) Landon Rachel May 03, 2018 09:09 August Esteves MD May 03, 2018 09:22
--- NOTE | 2018-05-03 09:43 | RADRPT ---
EXAM DATE: 05/03/2018 9:28 AM EDT AGE/SEX: 47 years / Male INDICATIONS: Gallstones. CLINICAL DATA: This is the patient's initial encounter. Patient reports that signs and/or symptoms h ave been present for 1 day and indicates a pain score of 10/10. MEDICAL/SURGICAL HISTORY: . Thyroid disease. Tonsillectomy. Appendectomy. ORIF. COMPARISON: [facility], CTA THORACIC ABDOMINAL AORTA W 3D RECON, 05/03/2018. MEASUREMENTS (cm x cm x cm): Liver:__ 16.2 cm cm length Common Bile Duct:__ 5mm FINDINGS: Liver: Coarse echotexture suggesting fatty change or diffuse hepatocellular process. Portal Vein: Hepatopedal flow seen in portal vein. Common Duct: No intraluminal mass or stone visualized. Gallbladder: The gallbladder is distended with multiple stones. There is mild gallbladder wall thick ening and adjacent pericholecystic fluid. The gallbladder measures at least 11 cm and distention with wall thickness of 6 mm. Pancreas: Not well visualized. Right Kidney: No mass or hydronephrosis Other: None. CONCLUSION: 1. Ultrasound findings consistent with acute cholecystitis. 2. Fatty infiltration of the liver with focal fat sparing identified adjacent to the gallbladder fos sa. Electronically signed by: Hayley Jones MD 05/03/2018 9:41 AM EDT
[2018-05-03 10:04] LABS: FREE T3 2.89 PG/ML (2.18-3.98); FREE T4 1.1 NG/DL (0.76-1.46)
[2018-05-03] MEDS ORDERED: IBUP1TAB5 PO (10:42)
[2018-05-03] MEDS ORDERED: PANT40TA3 PO (10:43)
[2018-05-03] MEDS ORDERED: CYAN1TAB24 (10:44)
[2018-05-03] MEDS ORDERED: LEVO25TA4 PO (10:47)
[2018-05-03] MEDS ORDERED: diphenhydrAMINE HCL 50 MG/ML VIAL IV PUSH ONE (12:00)
[2018-05-03] MEDS: PIPERACIL-TAZO 4.5 GM PREMIX 100 ML IV SCH ×2 (12:17→18:24)
--- NOTE | 2018-05-03 12:44 | PD.CONS ---
HPI Service General surgery Consult Requested By Josiane FLEMING Reason for Consult Cholecystitis Primary Care Physician [facility] History of Present Illness Patient is a 47-year-old male with a history of acid reflux who presented with severe epigastric and substernal pain radiating to the back. He had a similar episode in early April at which time he had ischemic workup with a normal cardiac stress test. EKG and cardiac enzymes have been normal during this admission. Ischemic chest pain was ruled out by cardiology. He underwent an ultrasound this morning which showed gallbladder wall thickening and pericholecystic fluid consistent with acute cholecystitis. He relates to me that last night he had pizza for dinner and the pain began soon after that. Past surgical history includes craniotomy for traumatic brain injury and appendectomy. His chart states that he has had a cholecystectomy but we specifically discussed this and he had confused that with appendectomy. Review of Systems Constitutional: DENIES: Fever, Chills Eyes: DENIES: Eye pain, Vision loss Ears, nose, mouth, throat: DENIES: Oral lesions, Throat pain Respiratory: DENIES: Cough, Shortness of breath Cardiovascular: COMPLAINS OF: Chest pain Gastrointestinal: COMPLAINS OF: Abdominal pain Integumentary: DENIES: Pruritus, Rash Neurologic: DENIES: Paresthesias, Seizures Past Family Social History Past Medical History GERD Hypothyroidism Past Surgical History Craniotomy Appendectomy Reported Medications Reported Meds & Active Scripts Active Zofran Odt (Ondansetron Odt) 4 Mg Tab 4 Mg SL Q6HR PRN Carafate Liq (Sucralfate) 1 Gm/10 Ml Susp 1 Gm PO Q6HR 14 Days on empty stomach Pantoprazole (Pantoprazole Sodium) 40 Mg Tab 40 Mg PO Q12HR take twice daily for two weeks and then once daily Reported Levothyroxine (Levothyroxine Sodium) 25 Mcg Tab 0.05 Mg PO DAILY B12 (Cyanocobalamin) 1,000 Mcg Tab DAILY Pantoprazole (Pantoprazole Sodium) 40 Mg Tab 40 Mg PO DAILY Ibuprofen 400 Mg Tab 400 Mg PO DAILY Levothyroxine (Levothyroxine Sodium) 25 Mcg Tab 25 Mcg PO DAILY Allergies: Coded Allergies: penicillin G (Verified Allergy, Unknown, 04/17/18) Active Ordered Medications Current Medications Medications (Trade) Dose Ordered Sig/Dominguez Route Start Time Stop Time Status Last Admin (NS Flush) 2 ml UNSCH PRN IV FLUSH 05/03/18 02:30 05/03/18 12:12 (NS Flush) 2 ml BID IV FLUSH 05/03/18 09:00 05/03/18 08:38 (Tylenol) 650 mg Q4H PRN PO 05/03/18 02:30 (Narcan Inj) 0.4 mg UNSCH PRN IV PUSH 05/03/18 02:30 (Milk Of Magnesia Liq) 30 ml Q12H PRN PO 05/03/18 02:30 (Senokot) 17.2 mg Q12H PRN PO 05/03/18 02:30 (Dulcolax Supp) 10 mg DAILY PRN RECTAL 05/03/18 02:30 (Lactulose Liq) 30 ml DAILY PRN PO 05/03/18 02:30 (Zofran Odt) 4 mg Q6H PRN SL 05/03/18 05:00 05/03/18 05:05 ([place] 5-325 Mg) 1 tab Q6H PRN PO 05/03/18 08:15 ([place] 5-325 Mg) 2 tab Q6H PRN PO 05/03/18 08:15 05/03/18 08:35 (Morphine Inj) 2 mg Q4H PRN IV PUSH 05/03/18 08:15 Piperacillin Sod/ Tazobactam Sod 100 ml @ 200 mls/hr Q6H IV 05/03/18 13:00 05/03/18 12:17 (Synthroid) 50 mcg DAILY@0600 PO 05/04/18 06:00 Family History Noncontributory Social History No alcohol tobacco or drug use. Physical Exam Vital Signs Vital Signs Date Time Temp Pulse Resp B/P (MAP) Pulse Ox O2 Delivery O2 Flow Rate FiO2 05/03/18 09:00 97.2 58 16 141/66 (91) 92 05/03/18 03:15 97.2 55 20 146/67 (93) 96 05/03/18 03:03 05/03/18 02:27 52 16 152/76 (101) 96 Room Air 05/02/18 23:28 52 16 143/80 (101) 96 Room Air 05/02/18 22:56 53 18 137/73 (94) 97 Room Air 05/02/18 22:38 18 93 Room Air 05/02/18 22:33 142/78 (99) 05/02/18 22:23 58 28 99 Room Air 05/02/18 22:08 58 150/86 (107) 05/02/18 21:45 100 Room Air Physical Exam GENERAL: Awake and alert. No acute distress. Cooperative. HEAD: Normocephalic. Atraumatic. EYES: Pupils equal round and reactive to light bilaterally. No scleral icterus. ENT: Moist oral mucosa. NECK: Trachea midline. CHEST: Nonlabored breathing. No respiratory distress. CARDIOVASCULAR: Regular rate and rhythm. ABDOMEN: Soft, nondistended, nontender. EXTREMITIES: No cyanosis or edema. SKIN: Warm, dry, nonjaundiced. Laboratory Laboratory Tests Test 05/02/18 21:58 05/03/18 01:00 05/03/18 08:20 White Blood Count 10.1 Red Blood Count 5.11 Hemoglobin 15.7 Bedside Hemoglobin Hematocrit 44.9 Bedside Hematocrit Mean Corpuscular Volume 87.9 Mean Corpuscular Hemoglobin 30.7 Mean Corpuscular Hemoglobin Concent 34.9 Red Cell Distribution Width 12.6 Platelet Count 308 Mean Platelet Volume 8.8 Neutrophils (%) (Auto) 63.5 Lymphocytes (%) (Auto) 27.2 Monocytes (%) (Auto) 5.7 Eosinophils (%) (Auto) 2.2 Basophils (%) (Auto) 1.4 Neutrophils # (Auto) 6.4 Lymphocytes # (Auto) 2.8 Monocytes # (Auto) 0.6 Eosinophils # (Auto) 0.2 Basophils # (Auto) 0.1 CBC Comment DIFF FINAL Differential Comment Prothrombin Time 10.1 Prothromb Time International Ratio 1.0 Activated Partial Thromboplast Time 25.9 Bedside Sodium 139 Blood Urea Nitrogen 14 Creatinine 1.20 Random Glucose 98 Total Protein 8.1 Albumin 4.3 Calcium Level 9.0 Magnesium Level 2.1 Alkaline Phosphatase 86 Aspartate Amino Transf (AST/SGOT) 21 Alanine Aminotransferase (ALT/SGPT) 33 Total Bilirubin 0.5 Sodium Level 140 Potassium Level 4.1 Chloride Level 103 Carbon Dioxide Level 24.7 Bedside Potassium 4.0 Bedside Chloride 101 Anion Gap 12 Bedside Blood Urea Nitrogen 15 Bedside Creatinine 1.2 Estimat Glomerular Filtration Rate 65 Bedside Glucose 105 Total Creatine Kinase 151 148 Creatine Kinase MB 1.1 1.0 Troponin I LESS THAN 0.02 LESS THAN 0.02 LESS THAN 0.02 B-Type Natriuretic Peptide 9 Free Thyroxine 1.10 Free Triiodothyronine (T3) pg/dL 2.89 Thyroid Stimulating Hormone 3rd Gen 1.700 Result Diagram: 05/02/18215705/02/182157 Imaging Last Impressions Gall Bladder Ultrasound 05/03/18 0000 Signed Impressions: CONCLUSION: 1. Ultrasound findings consistent with acute cholecystitis. 2. Fatty infiltration of the liver with focal fat sparing identified adjacent to the gallbladder fossa. Chest X-Ray 05/02/182150 Signed Impressions: CONCLUSION: No acute cardiopulmonary abnormality is identified. Aorta CTA 05/02/18 0000 Signed Impressions: CONCLUSION: 1. The aorta is intact. 2. Hepatic steatosis. 3. Gallstones Assessment and Plan Assessment and Plan 47-year-old male who has an evaluation consistent with acute cholecystitis. Recommend to proceed to the operating room for laparoscopic possible open cholecystectomy. Discussed the case in detail with the patient including risks and benefits and he desires to proceed. GeorgeMarc castaneda MD May 03, 2018 12:44
[2018-05-03] MEDS ORDERED: BUPIVACAINE/EPINEPHRINE 0.75% PF 30 ML VIAL ONE (13:58)
[2018-05-03] MEDS ORDERED: MIDAZOLAM HCL 2 MG/2 ML VIAL ONE (14:10)
[2018-05-03] MEDS ORDERED: fentaNYL CITRATE 250 MCG/5 ML AMP ONE (14:10)
--- NOTE | 2018-05-03 14:25 | EKG ---
Date Performed: 05/03/2018 Time Performed: 02:24:58 PTAGE: 47 years EKG: SINUS BRADYCARDIA BORDERLINE ECG PREVIOUS TRACING : 05/02/2018 21.52 Since previous tracing, no significant change. DOCTOR: Noah Hylton Interpretating Date/Time 05/03/2018 14:25:10
--- NOTE | 2018-05-03 14:25 | EKG ---
Date Performed: 05/02/2018 Time Performed: 21:52:30 PTAGE: 47 years EKG: SINUS BRADYCARDIA BORDERLINE ECG PREVIOUS TRACING : 04/17/2018 02.56 Since previous tracing, the criteria is no longer met for L [facility]. DOCTOR: Noah Hylton Interpretating Date/Time 05/03/2018 14:24:50
[2018-05-03] MEDS ORDERED: POVIDONE IODINE 5% (ANTISEPSIS KIT) 4 APPLICATIONS EACH NARE PRN (15:00)
[2018-05-03] MEDS ORDERED: LACTATED RINGER'S 1000 ML IV PRN (15:00)
[2018-05-03] MEDS ORDERED: METOPROLOL TARTRATE 25 MG TAB PO PRN (15:00)
[2018-05-03] MEDS ORDERED: SODIUM CHLORID 0.9% 500 ML IV PRN (15:00)
[2018-05-03] MEDS ORDERED: CHLORHEXIDINE GLUCONATE 2 % 1 PACK (2 CLOTHS) TOPICAL PRN (15:00)
[2018-05-03] MEDS ORDERED: KETO10 PO (16:09)
--- NOTE | 2018-05-03 16:09 | PD.OP ---
cc: Marc Vazquez MD Operative Report Date of Surgery: May 03, 2018 Preoperative Diagnosis: (1) Acute cholecystitis due to biliary calculus Postoperative Diagnosis: (1) Acute cholecystitis due to biliary calculus Procedure: Laparoscopic cholecystectomy Anesthesia: General Surgeon: Marc Vazquez Parquet Floor Layer'S Helper(s): Caden Operation and Findings: Complications: None apparent EBL: 100 cc Operative findings: Distended and inflamed gallbladder with thickened gallbladder wall. Brief bleeding from what appeared to be large posterior branch of cystic artery or aberrant branch of hepatics at junction of the gallbladder and the liver bed. This was controlled quickly using suction and [place] with clips applied providing hemostasis. Procedure in detail: The patient was taken to the operating room and placed in the supine position. General endotracheal anesthesia was induced. The abdomen was prepped and draped in usual sterile fashion and a surgical timeout was performed to verify correct patient procedure and site. Appropriate perioperative antibiotics were administered. Local anesthetic was injected in the skin and subcutaneous tissue superior to the umbilicus and a 5 mm incision performed. The abdomen was entered using the Optiview 5 mm trocar with direct laparoscopic visualization. The abdomen was then insufflated to 15 mmHg with CO2 gas which the patient tolerated well. Next a 12 mm port was placed in the epigastrium and two 5 mm ports in the right upper quadrant and right lateral abdomen. The patient was placed in reverse Trendelenburg position and turned slightly to the left. Attention was turned to the right upper quadrant and the dome of the gallbladder was grasped and retracted cephalad. The infundibulum was retracted laterally to expose Calot's triangle. The gallbladder was distended and enlarged with thickened wall and required decompression with the aspiration needle. Blunt dissection and judicious use of electrocautery was used to expose the cystic duct and the cystic artery directly entering the gallbladder. Suction l d rn was used to assist in dissection. Two clips were placed proximally on each of these structures and one distally and they were transected. The gallbladder was then removed from the liver bed using electrocautery. Medially at the border of the gallbladder and the liver adjacent to the gallbladder wall and arterial vessel was encountered with brief bleeding which was controlled with suction l d rn and [place] grasper. Hemostasis was achieved. Clips were placed proximally and distally on the artery. The gallbladder was then fully removed from the liver bed. The gallbladder was then removed from the abdomen using an Endo Catch bag. The clips were in place on the cystic duct and cystic artery stumps with no bleeding or bile leakage. There was some persistent oozing from the gallbladder fossa. Toby was placed in the liver bed and the site of the arterial bleeding. The site of bleeding was evaluated multiple times prior to the end of the case with complete hemostasis. At this point, the abdomen was allowed to desufflate and trochars were removed. The fascia at the 12 mm port site was closed with 0 Vicryl suture. Skin was closed with subcuticular 4-0 Monocryl as well as Dermabond. The patient tolerated the procedure well and was extubated and taken to PACU in stable condition. All sponge and instrument counts were correct. Marc Vazquez MD May 03, 2018 16:09
[2018-05-04] VITALS: BP 113/65; PULSE 58; RESP 20; TEMP 97.9; O2SAT 96
[2018-05-04] MEDS: PIPERACIL-TAZO 4.5 GM PREMIX 100 ML IV SCH ×2 (01:05→05:42)
[2018-05-04] MEDS: ACETAMINOPHEN/HYDROcodone 325 MG/5 MG TAB PO PRN ×2 (01:09→07:03)
[2018-05-04 04:00] VITALS: BP 107/66; PULSE 66; RESP 18; TEMP 97.7; O2SAT 95
[2018-05-04] MEDS ORDERED: LEVOTHYROXINE SODIUM 25 MCG TAB PO SCH (06:00)
--- NOTE | 2018-05-04 07:43 | HHI.DCPOC ---
Discharge Care Plan Diagnosis: (1) Acute cholecystitis due to biliary calculus Goals to Promote Your Health * To prevent worsening of your condition and complications * To maintain your health at the optimal level Directions to Meet Your Goals Take your medications as prescribed Follow your dietary instruction Follow activity as directed Keep your appointments as scheduled Take your immunizations and boosters as scheduled If your symptoms worsen call your PCP, if no PCP go to Urgent Care Center or Emergency Room Smoking is Dangerous to Your Health. Avoid second hand smoke Call the 24-hour hour crisis hotline for domestic abuse at Josiane Noe May 04, 2018 07:43
--- NOTE | 2018-05-04 07:49 | HHI.DS ---
Discharge Summary Admission Date May 03, 2018 at 02:27 Discharge Date: May 04, 2018 Admitting Diagnosis Chest pain, bradycardia, back pain (1) Chest pain ICD Code: R07.9 - Chest pain, unspecified Status: Acute (2) Cholecystitis ICD Code: K81.9 - Cholecystitis, unspecified (3) Back pain ICD Code: M54.9 - Dorsalgia, unspecified Status: Acute Procedures Cholecystectomy Brief History - From Admission This is a 47-year-old male patient with a known medical history of thyroid disease and GERD who presented to the ED with complaints of chest pain. Patient states that as he was sitting around yesterday he developed a midsternal chest pain that was characterized as constant in sharp in nature, admits that the pain worsened with any movement and denied any alleviating factors. Patient does state that he ate pizza yesterday with red sauce and shortly after developed nausea, denied any vomiting, sweating or shortness of breath. He does admit to feeling the similar symptoms intermittently in the last few weeks as well as in December this year. Patient was hospitalized in December underwent a cardiac stress test as well as an upper EGD with findings of mild gastritis. Cardiac stress test was negative. Patient does admit to subjective fevers, although he did not take his temperature at home, he does admit to chills as well as cough. Denies any diarrhea, bloody stools or black stools. At the time of assessment patient does complain of back pain, chest pain has relieved with some continued abdominal pain. CBC/BMP: 05/02/18215705/02/182157 Significant Findings Laboratory Tests Test 05/02/18 21:58 05/03/18 01:00 05/03/18 08:20 Bedside Chloride 101 MMOL/L (102-111) Estimat Glomerular Filtration Rate 65 ML/MIN (>89) Troponin I LESS THAN 0.02 NG/ML LESS THAN 0.02 NG/ML LESS THAN 0.02 NG/ML Imaging Last Impressions Gall Bladder Ultrasound 05/03/18 0000 Signed Impressions: CONCLUSION: 1. Ultrasound findings consistent with acute cholecystitis. 2. Fatty infiltration of the liver with focal fat sparing identified adjacent to the gallbladder fossa. Chest X-Ray 05/02/18 2151 Signed Impressions: CONCLUSION: No acute cardiopulmonary abnormality is identified. Aorta CTA 05/02/18 0000 Signed Impressions: CONCLUSION: 1. The aorta is intact. 2. Hepatic steatosis. 3. Gallstones Pt update on day of discharge Follow-up acute cholecystitis. Patient seen and examined, walking around room ambulating well. Pain is well controlled. Low-grade temp overnight. Denies any chills. Tolerating p.o. intake no nausea or vomiting. Will discharge home follow-up PCP and surgeon in 2 weeks. Hospital Course 47-year-old male patient with a known medical history of thyroid disease and GERD who presented to the ED with complaints of chest pain and abdominal pain. Patient was worked up for chest pain. Serial EKGs and serial troponins were negative. Community Health Director on-call was updated in ED overnight, concern for aortic dissection. A CT aorta was done with no significant findings of aortic dissection. Patient underwent a Lexiscan back in December with no significant findings. Chest pain is likely secondary to GI etiology. Patient presented with abdominal pain, nausea and vomiting secondary to acute cholecystitis. CBC and BMP reviewed essentially unremarkable. LFTs within normal limits. Was started on Zosyn prophylactically. Gallbladder ultrasound showing wall thickening and adjacent pericholecystic fluid with multiple stones. General surgery consulted and performed a cholecystectomy. Pain control with Toradol and IV morphine for breakthrough during hospitalization. Patient has chronic hypothyroidism, was continued on home levothyroxine. Patient was stabilized upon discharge. Discharged home to follow-up PCP in general surgery in 2 weeks. Patient with no leukocytosis. Low grade temp overnight. Abdominal incisions clean and dry. Will give antibiotics prophylactically. Pt Condition on Discharge: Stable Discharge Disposition: Discharge Home Discharge Time: > 30 minutes Discharge Instructions DIET: Follow Instructions for: Heart Healthy Diet Activities you can perform: Regular-No Restrictions Follow up Referrals: PCP Follow-up - 1 Week Surgical - 2 Weeks with Marc Vazquez MD New Medications: Ketorolac (Ketorolac) 10 Mg Tab 10 MG PO Q6HR PRN for PAIN, #20 TAB 0 Refills Levofloxacin (Levaquin) 750 Mg Tablet 750 MG PO DAILY for Infection for 7 Days, #7 TAB 0 Refills Metronidazole (Metronidazole) 500 Mg Tab 500 MG PO TID for Infection for 7 Days, #21 TAB 0 Refills Continued Medications: Cyanocobalamin (B12) 1,000 Mcg Tab DAILY for Thyroid Ibuprofen (Ibuprofen) 400 Mg Tab 400 MG PO DAILY for Migraines, TAB 0 Refills Levothyroxine (Levothyroxine) 25 Mcg Tab 0.05 MG PO DAILY for Thyroid, #30 TAB 0 Refills Ondansetron Odt (Zofran Odt) 4 Mg Tab 4 MG SL Q6HR PRN for Nausea/Vomiting, #10 TAB 0 Refills Pantoprazole (Pantoprazole) 40 Mg Tab 40 MG PO DAILY for Reflux, #30 TAB 0 Refills Sucralfate Liq (Carafate Liq) 1 Gm/10 Ml Susp 1 GM PO Q6HR for Duodenal ulcer for 14 Days, ML 0 Refills on empty stomach Discontinued Medications: Levothyroxine (Levothyroxine) 25 Mcg Tab 25 MCG PO DAILY for Thyroid, #30 TAB 0 Refills Pantoprazole (Pantoprazole) 40 Mg Tab 40 MG PO Q12HR for gastritis, #42 TAB take twice daily for two weeks and then once daily Josiane Noe May 04, 2018 07:49
[2018-05-04] MEDS ORDERED: LEVA750T9 PO (07:50)
[2018-05-04] MEDS ORDERED: METR1TAB76 PO (07:50)
[2018-05-04 08:03] VITALS: RESP 18
[2018-05-04 08:22] LABS: AUTOMATED NEUTROPHIL # 10.8 TH/MM3 (1.8-7.7); BASOPHIL % 0.2 % (0.0-2.0); EOSINOPHIL % 0.1 % (0.0-4.0); HEMATOCRIT 40.4 % (39.0-51.0); LYMPH % 9.6 % (9.0-44.0); LYMPHOCYTE # 1.3 TH/MM3 (1.0-4.8); MEAN CELL VOLUME 90.1 FL (80.0-100.0); MEAN CORPUSCULAR HGB CONC 33.3 % (32.0-36.0); MEAN PLATELET VOLUME 8.8 FL (7.0-11.0); MONO % 8.2 % (0.0-8.0); MONOCYTE # 1.1 TH/MM3 (0-0.9); NEUT % 81.9 % (16.0-70.0); PLATELET COUNT 245 TH/MM3 (150-450); RED BLOOD COUNT 4.49 MIL/MM3 (4.50-5.90); RED CELL DISTRIBUTION WIDTH 12.4 % (11.6-17.2); WHITE BLOOD COUNT 13.2 TH/MM3 (4.0-11.0)
[2018-05-04 08:25] LABS: CALCIUM 8.5 MG/DL (8.5-10.1)
[2018-05-04 08:26] LABS: BICARBONATE 29.1 MEQ/L (21.0-32.0); HEMOGLOBIN 13.4 GM/DL (13.0-17.0)
[2018-05-04 08:29] LABS: CREATININE 1.4 MG/DL (0.60-1.30)
[2018-05-04] MEDS: SODIUM CHLORIDE 0.9% FLUSH 10 ML FLUSH IV FLUSH SCH (09:00)
== END 2018-05-04 10:03 | disposition home or self-care (01) ==
LOC: PHED 21:39 → PHEDA 05-03 02:27 → PH3B 05-03 03:04
PROVIDERS: ADMIT Hospitalist; ATTEND Hospitalist
DX: R07.89 Other chest pain (principal); K80.12 Calculus of gallbladder with acute and chronic cholecystitis without obstruction; R00.1 Bradycardia, unspecified; E03.9 Hypothyroidism, unspecified; K21.9 Gastro-esophageal reflux disease without esophagitis; K76.0 Fatty (change of) liver, not elsewhere classified
CPT/HCPCS: 00790; 47562; 71045; 71275; 74174; 76705; 80048; 80053; 82550; 82552; 83735; 83880; 84439; 84443; 84481; 84484; 85025; 85610; 85730; 88304; 93005; 96361; 96365; 96366; 96375; 99285; C9113; G0378; J1200; J1885; J2250; J2543; J2765; J3010; J7050; Q9967

== ENCOUNTER 2018-07-23 09:40 | Observation (INO) ==
[2018-07-23 09:53] VITALS: RESP 16
--- NOTE | 2018-07-23 10:15 | ED ---
HPI General Chief Complaint: Chest Pain Stated Complaint: Chest pain Time Seen by Provider: 07/23/18 09:54 Source: patient, family, RN notes reviewed and old records reviewed Mode of arrival: EMS Limitations: no limitations History of Present Illness HPI narrative: 47-year-old male states he recently went to [place] [facility] with left-sided chest pain and his workup in the ER was normal so he was sent home. He now is developing tingling and pain to his left arm so he went to the ID and they sent him back here for further evaluation. He was given aspirin and nitroglycerin. He states his chest pain is now resolved. He states that he had a stress test about 8 months ago that he believes was normal when he was having gastritis issues. MD complaint: chest pain Complete Quality Measures for STEMI Alert Patients STEMI Alert: No Onset (ago): day(s) Duration: intermittent Quality: tightness Pain radiation: LUE Exacerbating factors: nothing Treatments prior to arrival chest pain: aspirin and nitroglycerin Related Data Home Medications Medication Instructions Recorded Confirmed cyanocobalamin (vitamin B-12) 1,000 mg PO DAILY 07/21/18 07/21/18 levothyroxine 50 mcg PO DAILY 07/21/18 07/21/18 pantoprazole 40 mg PO DAILY 07/21/18 07/21/18 Allergies Allergy/AdvReac Type Severity Reaction Status Date / Time penicillin G Allergy Unknown Abdominal Verified 07/23/18 09:45 Pain Review of Systems ROS: all other systems reviewed are negative [facility] Medical History Medical History Acid reflux disease (Acute) Anxiety (Acute) Head injury with skull fracture (Acute) Hypothyroidism (Acute) Seizure (Acute) Surgical History Surgical History History of appendectomy (Acute) History of cholecystectomy (Acute) Social History Social History Substance History: No History of Abuse Second Hand Smoke Exposure: No Smoking Status: Never smoker Tobacco Type: Cigarettes How Often Do You Have a Drink Containing Alcohol: Never Recent Travel in [facility] within the Last 8 Weeks: No Recent Out of Country Travel within the Last 8 Weeks: No Immunization History Tetanus Immunization: Unsure Hx Influenza Vaccine This Season: Yes Exam Narrative Exam Narrative: GENERAL: 47 y/o male in no apparent distress SKIN: Focused skin assessment warm/dry. HEAD: Atraumatic. Normocephalic. EYES: Pupils equal and round. No scleral icterus. No injection or drainage. ENT: No nasal bleeding or discharge. Mucous membranes pink and moist. NECK: Trachea midline. No JVD. CARDIOVASCULAR: Regular rate and rhythm. No murmur appreciated. RESPIRATORY: No accessory muscle use. Clear to auscultation. Breath sounds equal bilaterally. GASTROINTESTINAL: Abdomen soft, non-tender, nondistended. MUSCULOSKELETAL: No obvious deformities. No clubbing. No cyanosis. No edema. NEUROLOGICAL: Awake and alert. No obvious cranial nerve deficits. Motor grossly within normal limits. Normal speech. PSYCHIATRIC: Appropriate mood and affect; insight and judgment normal. Course Hospital Course: ed workup no acute, agrees to holden hospital observation Initial Documented Vital Signs Temperature 98.7 F 07/23/18 09:45 Pulse Rate 62 07/23/18 09:45 Respiratory Rate 16 07/23/18 09:45 Blood Pressure 146/81 H 07/23/18 09:45 Last Documented Vital Signs Temperature 98.7 F 07/23/18 09:45 Pulse Rate 62 07/23/18 09:45 Respiratory Rate 16 07/23/18 09:45 Blood Pressure 146/81 H 07/23/18 09:45 Medical Decision Making [facility] Narrative Medical decision making narrative: Will check blood work, imaging, EKG and monitor. Currently pain-free Medical Screen Exam Complete: Yes Emergency Medical Condition: Yes Differential Diagnosis Differential Diagnosis: Cardiac, musculoskeletal, gastritis Lab Data Lab results reviewed: Yes I reviewed the patient's lab results. Result diagrams: 07/23/18 09:55 07/23/18 09:55 Lab Results 07/23/18 07/23/18 07/23/18 Range/Units 09:55 09:55 09:55 WBC 6.8 (4.0-11.0) th/mm3 RBC 4.50 (4.50-5.90) mil/mm3 Hgb 13.9 (13.0-17.0) gm/dL Hct 40.4 (39.0-51.0) % MCV 89.7 (80.0-100.0) fL MCH 30.8 (27.0-34.0) pg MCHC 34.4 (32.0-36.0) % RDW 13.6 (11.6-17.2) % Plt Count 252 (150-450) th/mm3 MPV 8.2 (7.0-11.0) fL Neut % (Auto) 67.6 (16.0-70.0) % Lymph % (Auto) 20.7 (9.0-44.0) % [place] % (Auto) 7.4 (0.0-8.0) % Eos % (Auto) 3.7 (0.0-4.0) % Baso % (Auto) 0.6 (0.0-2.0) % Neut # (Auto) 4.6 (1.8-7.7) th/mm3 Lymph # (Auto) 1.4 (1.0-4.8) th/mm3 [place] # (Auto) 0.5 (0.0-0.9) th/mm3 Eos # (Auto) 0.3 (0.0-0.4) th/mm3 Baso # (Auto) 0.0 (0.0-0.2) th/mm3 WBC Differential . Differential Comment Auto diff final PT 9.9 (9.8-11.6) sec INR 1.0 Ratio APTT 25.5 (24.3-30.1) sec Sodium (136-145) meq/L Potassium (3.5-5.1) meq/L Chloride (98-107) meq/L Carbon Dioxide (21.0-32.0) meq/L Anion Gap (5-15) meq/L BUN (7-18) mg/dL Creatinine (0.60-1.30) mg/dL Estimated GFR (>89) mL/min Random Glucose (74-106) mg/dL Calcium (8.5-10.1) mg/dL Total Bilirubin (0.2-1.0) mg/dL AST (15-37) U/L ALT (12-78) U/L Alkaline Phosphatase (45-117) U/L Total Creatine Kinase (39-308) U/L Troponin I Less than 0.02 L (0.02-0.05) ng/mL Total Protein (6.4-8.2) g/dL Albumin (3.4-5.0) g/dL 08/22/18 Range/Units 09:55 WBC (4.0-11.0) th/mm3 RBC (4.50-5.90) mil/mm3 Hgb (13.0-17.0) gm/dL Hct (39.0-51.0) % MCV (80.0-100.0) fL MCH (27.0-34.0) pg MCHC (32.0-36.0) % RDW (11.6-17.2) % Plt Count (150-450) th/mm3 MPV (7.0-11.0) fL Neut % (Auto) (16.0-70.0) % Lymph % (Auto) (9.0-44.0) % [place] % (Auto) (0.0-8.0) % Eos % (Auto) (0.0-4.0) % Baso % (Auto) (0.0-2.0) % Neut # (Auto) (1.8-7.7) th/mm3 Lymph # (Auto) (1.0-4.8) th/mm3 [place] # (Auto) (0.0-0.9) th/mm3 Eos # (Auto) (0.0-0.4) th/mm3 Baso # (Auto) (0.0-0.2) th/mm3 WBC Differential Differential Comment PT (9.8-11.6) sec INR Ratio APTT (24.3-30.1) sec Sodium 144 (136-145) meq/L Potassium 4.3 (3.5-5.1) meq/L Chloride 110 H (98-107) meq/L Carbon Dioxide 26.4 (21.0-32.0) meq/L Anion Gap 8 (5-15) meq/L BUN 10 (7-18) mg/dL Creatinine 1.09 (0.60-1.30) mg/dL Estimated GFR 73 L (>89) mL/min Random Glucose 114 H (74-106) mg/dL Calcium 8.4 L (8.5-10.1) mg/dL Total Bilirubin 0.3 (0.2-1.0) mg/dL AST 11 L (15-37) U/L ALT 25 (12-78) U/L Alkaline Phosphatase 93 (45-117) U/L Total Creatine Kinase 82 (39-308) U/L Troponin I (0.02-0.05) ng/mL Total Protein 7.4 (6.4-8.2) g/dL Albumin 3.9 (3.4-5.0) g/dL Imaging Data Attestation: I personally reviewed and interpreted this imaging study as follows : Radiologist's impression: Chest X-Ray 07/23/18 09:54 CONCLUSION: Under aerated otherwise negative Discharge Plan Discharge Disposition Patient Disposition: 30 Still Patient Discharge Condition Condition: Stable Discharge Details Diagnosis: Chest pain Physicians Team ED Provider: Jeanette Carlson Primary Care Provider: [facility],Physician [place] /Orders / Referrals /Forms Prescriptions: No Action pantoprazole 40 mg Tablet,Delayed Release (Dr/Ec) 40 mg PO DAILY RF: 0 levothyroxine 50 mcg Capsule 50 mcg PO DAILY RF: 0 cyanocobalamin (vitamin B-12) 1,000 mg PO DAILY RF: 0 Discharge Instructions Patient Printed Instructions: Chest Pain (ED) Status ED Status: Admitted Observation Patient
[2018-07-23 10:16] LABS: Baso % (Auto) 0.6 % (0.0-2.0); Eos # (Auto) 0.3 th/mm3 (0.0-0.4); Eos % (Auto) 3.7 % (0.0-4.0); Hematocrit 40.4 % (39.0-51.0); Hemoglobin 13.9 gm/dL (13.0-17.0); Lymph # (Auto) 1.4 th/mm3 (1.0-4.8); Lymph % (Auto) 20.7 % (9.0-44.0); Mean Corpuscular HGB Conc 34.4 % (32.0-36.0); Mean Corpuscular Hemoglobin 30.8 pg (27.0-34.0); Mean Corpuscular Volume 89.7 fL (80.0-100.0); Mean Platelet Volume 8.2 fL (7.0-11.0); Mono # (Auto) 0.5 th/mm3 (0.0-0.9); Mono % (Auto) 7.4 % (0.0-8.0); Neut # (Auto) 4.6 th/mm3 (1.8-7.7); Neut % (Auto) 67.6 % (16.0-70.0); Platelet Count 252 th/mm3 (150-450); Red Cell Distribution Width 13.6 % (11.6-17.2); White Blood Count 6.8 th/mm3 (4.0-11.0)
--- NOTE | 2018-07-23 10:22 | XR ---
EXAM DATE: 07/23/2018 10:14 AM EDT AGE/SEX: 47 years / Male INDICATIONS: Chest pain. CLINICAL DATA: This is the patient's initial encounter. Patient reports that signs and symptoms have been present for 4 - 6 days and indicates a pain score of 6/10. MEDICAL/SURGICAL HISTORY: None. None. COMPARISON: [facility], CHEST 1V SINGLE AP, 07/21/2018. . FINDINGS: Lungs are under aerated but clear. The heart and pulmonary vascularity are normal. The portion of the bony skeleton visualized is unremarkable. CONCLUSION: Under aerated otherwise negative Electronically signed by: Barry Mcdaniels MD 07/23/2018 10:21 AM EDT
[2018-07-23 10:27] LABS: Activated Partial Thrombo Time 25.5 sec (24.3-30.1); Prothrombin Time 9.9 sec (9.8-11.6)
[2018-07-23 10:42] LABS: Alanine Aminotransferase 25 U/L (12-78); Albumin 3.9 g/dL (3.4-5.0); Anion Gap 8 meq/L (5-15); Aspartate Aminotransferase 11 U/L (15-37); Blood Urea Nitrogen 10 mg/dL (7-18); Calcium 8.4 mg/dL (8.5-10.1); Carbon Dioxide 26.4 meq/L (21.0-32.0); Chloride 110 meq/L (98-107); Glomerular Filtration Rate 73 mL/min (>89); Glucose,Random 114 mg/dL (74-106); Potassium 4.3 meq/L (3.5-5.1); Sodium 144 meq/L (136-145)
[2018-07-23 10:44] LABS: Alkaline Phosphatase 93 U/L (45-117); Total Protein 7.4 g/dL (6.4-8.2)
[2018-07-23 10:45] LABS: Creatine Kinase 82 U/L (39-308)
--- NOTE | 2018-07-23 12:31 | P.HPCA ---
History of Present Illness Primary Care Physician: Physician [facility] Chief Complaint: Chest pain History of Present Illness: This is a 47-year-old male the presents to ED with complaint of chest pain. States he has been under a lot of stress. States that his [id number] just had a bad myocardial infarction is now in hospice care and his had a nervous breakdown afterwards and he has been having to handle a lot of stress from that. States that last which is 6 days ago he developed a left- sided chest discomfort as described as sharp in nature. Lasted a couple minutes but continued to recur. States it happens too many times to count. Check his blood pressure and it was in the 140s she states is higher than usual for him and that he has never been diagnosed hypertension. Continue to deal with the symptoms. He subsequently called the [place] after-hours hotline Saturday evening and was told to go to the ED. He went to the [place] ED and was evaluated in the ED and discharged home. The next morning he developed also a tingling in his left arm which concerned him more. This continued to occur intermittently. Denies associated shortness breath, nausea, or diaphoresis. Went to the [place] walk-in clinic today and was advised to go to ED. States that he has had a recent stress test. Upon reviewing records he had a nonischemic Lexiscan January 02, 2018. Currently feeling okay without discomfort in his chest. Lifetime non-smoker. Denies alcohol or illicit drug use. States he has been disabled from for about 25 years. He had a open head injury while in . He has no knowledge of his family cardiac history. - Diagnosis (1) Chest pain Review of Systems General: Patient denies fevers, chills, and recent travel. HEENT: Patient denies headache, sore throat, difficulty swallowing. Cardiovascular: Has the chest discomfort as mentioned above. Denies sensation of heart beating rapidly or irregularly. No syncope. Diaphoresis. Respiratory: Denies shortness of breath or inspirational chest discomfort. Denies coughing wheezing or hemoptysis. GI: Patient denies nausea, vomiting, diarrhea, abdominal pain, bloody stools. Musculoskeletal: Patient denies joint pain or edema. Denies calf pain or edema. Neurovascular: Complains of tingling sensation in his left arm. Patient denies numbness, weakness in extremities. Denies headache. Endocrine: Denies polyuria and polydipsia. Hematologic: Denies easy bruising. Skin: Denies rash or itching. PMFSH - History History Provided By: Patient, Device Sales Consultant / EMT - Medical History Medical History: Medical History (Last Reviewed 07/23/18 @ 10:14 by Jeanette Carlson MD) Acid reflux disease Anxiety Head injury with skull fracture Hypothyroidism Seizure - Surgical History Surgical History: Surgical History (Last Reviewed 07/23/18 @ 10:14 by Jeanette Carlson MD) History of appendectomy History of cholecystectomy - Tobacco History Second Hand Smoke Exposure: No Tobacco Use In Past 30 Days: No Smoking Status: Never smoker Tobacco Type: Cigarettes - Alcohol History How Often Do You Have a Drink Containing Alcohol: Never - Substance Use History Substance History: No History of Abuse - Travel History Recent Travel in the [facility] Within the Last 8 Weeks: No Recent Travel Out of the Country Within the Last 8 Weeks: No - Immunization History Tetanus Immunization: Unsure Hx Influenza Vaccine This Season: Yes Medications and Allergies Active Medications: Active Medications Sodium Chloride (Ns Flush) 2 ml IV.FLUSH UNSCH PRN PRN Reason: FLUSH AFTER USING IV ACCESS Allergies Allergy/AdvReac Type Severity Reaction Status Date / Time penicillin G Allergy Unknown Abdominal Verified 07/23/18 09:45 Pain Home Medications Medication Instructions Recorded Confirmed Type cyanocobalamin (vitamin B-12) 1,000 mg PO DAILY 07/21/18 07/21/18 History levothyroxine 50 mcg PO DAILY 07/21/18 07/21/18 History pantoprazole 40 mg PO DAILY 07/21/18 07/21/18 History Exam Vital signs: Vital Signs 07/23/18 09:45 Temperature 98.7 F Pulse Rate 62 Respiratory Rate 16 Blood Pressure 146/81 H Intake & Output 07/22/18 07/23/18 07/23/18 18:59 06:59 18:59 Weight 104.326 kg Narrative: GENERAL: This is a well-nourished, well-developed patient, in no apparent distress. Patient speaks in clear complete sentences. Patient is pleasant. HEENT: Head is atraumatic and normocephalic. Neck is supple without lymphadenopathy and trachea is midline. No JVD or carotid bruits. CARDIOVASCULAR: Regular rate and rhythm without murmurs, gallops, or rubs. RESPIRATORY: Clear to auscultation. Breath sounds equal bilaterally. No wheezes , rales, or rhonchi. Chest wall is tender. No use of accessory muscles. GASTROINTESTINAL: Abdomen is nontender, nondistended. Abdomen soft. No obvious pulsatile mass or bruit. No CVA tenderness. Strong femoral pulses bilaterally. Normal bowel sounds in all quadrants. MUSCULOSKELETAL: Patient is moving upper and lower extremities freely. No calf tenderness or edema, no Homans sign. Strong pulses in upper and lower extremities. NEUROLOGICAL: Patient is alert and oriented. Cranial nerves 2-12 are grossly intact. No focal deficits and speech is clear. SKIN: No rash and turgor is normal. Results 07/23/18 09:55 07/23/18 09:55 Cardiac Enzymes 07/23/18 07/23/18 Range/Units 09:55 09:55 AST 11 L (15-37) U/L Troponin I Less than 0.02 L (0.02-0.05) ng/mL Coagulation 07/23/18 Range/Units 09:55 PT 9.9 (9.8-11.6) sec APTT 25.5 (24.3-30.1) sec CBC 07/23/18 Range/Units 09:55 WBC 6.8 (4.0-11.0) th/mm3 RBC 4.50 (4.50-5.90) mil/mm3 Hgb 13.9 (13.0-17.0) gm/dL Hct 40.4 (39.0-51.0) % Plt Count 252 (150-450) th/mm3 Neut # (Auto) 4.6 (1.8-7.7) th/mm3 Lymph # (Auto) 1.4 (1.0-4.8) th/mm3 [place] # (Auto) 0.5 (0.0-0.9) th/mm3 Eos # (Auto) 0.3 (0.0-0.4) th/mm3 Baso # (Auto) 0.0 (0.0-0.2) th/mm3 Comprehensive Metabolic Panel 07/23/18 Range/Units 09:55 Sodium 144 (136-145) meq/L Potassium 4.3 (3.5-5.1) meq/L Chloride 110 H (98-107) meq/L Carbon Dioxide 26.4 (21.0-32.0) meq/L BUN 10 (7-18) mg/dL Creatinine 1.09 (0.60-1.30) mg/dL Calcium 8.4 L (8.5-10.1) mg/dL AST 11 L (15-37) U/L ALT 25 (12-78) U/L Alkaline Phosphatase 93 (45-117) U/L Total Protein 7.4 (6.4-8.2) g/dL Albumin 3.9 (3.4-5.0) g/dL Intake and Output 07/22/18 07/23/18 07/23/18 22:59 06:59 14:59 Other: Weight 104.326 kg Patient Weight 07/24/18 06:59 Weight 104.326 kg EKG interpretations - EKG EKG shows: sinus rhythm (Initial EKG is sinus rhythm without significant ST segment depressions or elevations.) Caprini VTE Risk Assessment Caprini VTE Risk Assessment: No/Low Risk (score <= 1) Caprini Risk Assessment Model: Point Value = 1 Point Value = 2 Point Value = 3 Point Value = 5 Age 41-60 Minor surgery BMI > 25 kg/m2 Swollen legs Varicose veins or History of unexplained or recurrent spontaneous Oral contraceptives or hormone replacement Sepsis (< 1 month) Serious lung disease, including pneumonia (< 1 month) Abnormal pulmonary function Acute myocardial infarction Congestive heart failure (< 1 month) History of inflammatory bowel disease Medical patient at bed rest Age 61-74 Arthroscopic surgery Major open surgery (> 45 min) Laparoscopic surgery (> 45 min) Malignancy Confined to bed (> 72 hours) Immobilizing plaster cast Central venous access Age >= 75 History of VTE Family history of VTE Factor V Leiden Prothrombin [id number] Lupus anticoagulant Anticardiolipin antibodies Elevated serum homocysteine Heparin-induced thrombocytopenia Other congenital or acquired thrombophilia Stroke (< 1 month) Elective arthroplasty Hip, pelvis, or leg fracture Acute spinal cord injury (< 1 month) Prophylaxis Regimen: Total Risk Factor Score Risk Level Prophylaxis Regimen 0-1 Low Early ambulation 2 Moderate Order ONE of the following: *Sequential Compression Device (SCD) *Heparin 5000 units SQ BID 3-4 Higher Order ONE of the following medications: *Heparin 5000 units SQ TID *Enoxaparin/Lovenox 40 mg SQ daily (WT < 150 kg, CrCl > 30 mL/min) *Enoxaparin/Lovenox 30 mg SQ daily (WT < 150 kg, CrCl > 10-29 mL/min) *Enoxaparin/Lovenox 30 mg SQ BID (WT < 150 kg, CrCl > 30 mL/min) AND/OR *Sequential Compression Device (SCD) 5 or more Highest Order ONE of the following medications: *Heparin 5000 units SQ TID (Preferred with Epidurals) *Enoxaparin/Lovenox 40 mg SQ daily (WT < 150 kg, CrCl > 30 mL/min) *Enoxaparin/Lovenox 30 mg SQ daily (WT < 150 kg, CrCl > 10-29 mL/min) *Enoxaparin/Lovenox 30 mg SQ BID (WT < 150 kg, CrCl > 30 mL/min) AND *Sequential Compression Device (SCD) Assessment and Plan - Assessment (1) Chest pain Code(s): R07.9 - Chest pain, unspecified Status: Acute - Plan * Chest pain: Patient's symptoms seem atypical. His chest discomforts have been intermittent for week and states is been too often to count. Initial troponin is normal. We will continue to have serial cardiac enzymes and EKGs for ruling out purposes. Reviewing records, patient also had a nonischemic Lexiscan in January 02, 2018. Patient will be evaluated by Dr. Louie Bella of cardiology in the chest pain center and then further plan will be decided. Patient will need follow-up with his PCP. Return to ED for interval issues. Patient is stable at this time. He is agreeable to this plan. (1) Chest pain Qualifiers: Chest pain type: unspecified Qualified Code(s): R07.9 - Chest pain, unspecified
[2018-07-23 13:57] VITALS: BP 151/100; PULSE 69; TEMP 98.2; O2SAT 100
[2018-07-23] MEDS ORDERED: Regadenoson Inj 0.4 MG/5 ML Syringe IV.PUSH ONE (15:32)
[2018-07-23 16:11] LABS: Creatine Kinase 79 U/L (39-308)
--- NOTE | 2018-07-23 17:08 | NM ---
EXAM DATE: 07/23/2018 5:00 PM EDT AGE/SEX: 47 years / Male INDICATIONS:Angina. . Left chest pain. CLINICAL DATA: This is the patient's initial encounter. Patient reports that signs and symptoms have been present for 1 day and indicates a pain score of 4/10. MEDICAL/SURGICAL HISTORY: Seizures. Hyperthyroidism. Appendectomy. Cholecystectomy. COMPARISON: [facility], MYOCARDIAL PERF PHARM SPECT, 01/02/2018. . No external comparison. DOSE: 11.0 mCi Tc 99m Myoview at rest 35.0 mCi [id number] at stress 0.4 mg Lexiscan STRESS SYMPTOMS: Short of breath and flush. EJECTION FRACTION: 60 % TECHNIQUE: The patient underwent pharmacologic stress with infusion of prescribed dose. Continuous ECG tracing was monitored during stress. Gated SPECT imaging was performed after stress and conventi onal SPECT imaging was performed at rest. The examination was performed on a SPECT/CT scanner, both attenuation and non-corrected datasets were reviewed. FINDINGS: Distribution: The maximum perfused segment at stress is in the posterior basal wall. Perfusion Study: Mildly diminished relative perfusion to the cardiac apex. Mild partial redistribut ion. Gated Study: There are intact wall motion and wall thickening without hypokinetic or dyskinetic segm ents. The ejection fraction is calculated at 60%. RISK CATEGORY: Low (<1% Annual Motality Rate) CONCLUSION: 1. Mild severity partially reversible apical perfusion abnormality. 2. Satisfactory LV function Electronically signed by: Quintin Tomlinson MD 07/23/2018 5:07 PM EDT
--- NOTE | 2018-07-23 21:19 | ECG ---
Date Performed: 07/23/2018 Time Performed: 09:52:39 PTAGE: 47 years EKG: Sinus rhythm MODERATE VOLTAGE CRITERIA FOR LVH, CONSIDER NORMAL VARIANT BORDERLINE ECG Since the PREVIOUS TRACING , no significant change noted DOCTOR: Jatin Vasquez Interpretating Date/Time 07/23/2018 21:17:26
--- NOTE | 2018-07-24 07:56 | TR ---
Date Performed: 07/23/2018 Time Performed: 15:42:03 DOCTOR: Gracia Salcedo DRUG LIST: CLINICAL HISTORY: REASON FOR TEST: REASON FOR ENDING: OBSERVATION: CONCLUSION: Lexiscan stress test was performed under standard four minute protocol. Radionuclid e was injected one minute prior to ending the test. No electrocardiographic abormalities were present to suggest ischemia. Nuclear imaging and interpretation are pending. COMMENTS: No ischemia
== END 2018-07-23 17:48 | disposition home or self-care (01) ==
LOC: NEDA 09:40 → NEPE 09:40 → NEDA 17:47
PROVIDERS: ADMIT Internal Medicine Cardiovascular Disease; ATTEND Internal Medicine Cardiovascular Disease